=== PATIENT | male | born 1965 | race African-American/Black ===

== ENCOUNTER → 2021-01-27 13:50 | Outpatient (CLI) | payer OTHER, SELFPAY ==
--- NOTE | ~2021-01-27 | CT_ITS ---
EXAMINATION: CT brain wo con DATE: 01/27/2021 14:19 INDICATION: Cerebrovascular accident. Right foot drop. TECHNIQUE: Computed tomography (CT) of the head was performed without intravenous contrast. The mA wa s adjusted according to patient size. Iterative reconstruction technique was employed. The dose-lengt h product was 674.51 mGy-cm. COMPARISON: None FINDINGS: There is no intracranial hemorrhage, acute infarction, or abnormal intracranial mass lesion . There are scattered areas of low attenuation in the cerebral white matter. The ventricles are sultana l in size. The orbits are normal. There is mucosal thickening in the paranasal sinuses. The mastoid a ir cells are normal. IMPRESSION: 1. Moderate nonspecific cerebral white matter disease, which likely represents chronic small vessel i schemic disease. Reviewed, dictated and finalized at location A. ER SEAM OPERATOR IMPRESSION: 1. Moderate nonspecific cerebral white matter disease, which likely represents chronic small vessel ischemic disease.
--- NOTE | ~2021-01-27 | US_ITS ---
EXAMINATION: US carotid duplex BI DATE: 01/27/2021 14:36 INDICATION: Right-sided carotid bruit. TECHNIQUE: Grayscale, color Doppler, and pulsed Doppler images of the cervical carotid arteries were obtained. The degree of vessel stenosis is placed in one of the following categories: normal, <50%, 5 0-69%, >=70% but less than near-occlusion, near-occlusion, or total occlusion. Note that percent sten osis relative to normal distal artery lumen diameter is indirectly measured from velocity measurement s as described by Papa, et al. Radiology 2003; [id number]. COMPARISON: None. FINDINGS: RIGHT: The right common carotid artery (CCA) peak systolic velocity (PSV) is 78 cm/s. The right internal car otid artery (ICA) PSV is 68 cm/s. The right ICA end-diastolic velocity (EDV) is 31 cm/s. The right IC A/CCA PSV ratio is 1.3. Grayscale and color Doppler images yield an estimate of 0% diameter reduction from plaque in the ICA. There is antegrade flow in the right vertebral artery. LEFT: The left CCA PSV is 84 cm/s. The left ICA PSV is 60 cm/s. The left ICA EDV is 25 cm/s. The left ICA/C CA PSV ratio is 1.1. Grayscale and color Doppler images yield an estimate of 0% diameter reduction fr om plaque in the ICA. There is antegrade flow in the left vertebral artery. IMPRESSION: 1. Normal internal carotid arteries. Reviewed, dictated and finalized at location A. BOX TENDER
== END ==
PROVIDERS: Visit Provider Internal Medicine Geriatric Medicine
DX: I65.21 Occlusion and stenosis of right carotid artery (principal); R93.0 Abnormal findings on diagnostic imaging of skull and head, not elsewhere classified
CPT/HCPCS: 70450; 93880

== ENCOUNTER 2024-11-01 12:15 | Emergency (ER) | payer OTHER, SELFPAY ==
--- NOTE | ~2024-11-01 | XR_ITS ---
EXAMINATION: XR hand LT min 3V DATE: 11/01/2024 12:58 INDICATION: Left hand swelling and pain. TECHNIQUE: 4 views of left hand were obtained. COMPARISON: None. FINDINGS: There is dorsal tilt of lunate. No fracture. There is moderate osteoarthritis of radioscaph oid joint and mild osteoarthritis of first carpometacarpal joint and second and fifth distal interpha langeal joints. IMPRESSION: 1. 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 Reviewed, dictated and finalized at location A. ON GRADER IMPRESSION: 1. Dorsal tilt of lunate, consistent with dorsal intercalated segmental instabi lity (DISI). 2. Polyarticular osteoarthritis.
[2024-11-01 12:16] VITALS: BP 160/107; PULSE 62; RESP 16; TEMP 36.4; O2SAT 100
--- NOTE | 2024-11-01 13:02 | ED.UPPEXIN ---
HPI - Extremity Injury (Upper) General Chief Complaint: Extremity Injury, Upper <TANA Lowery Last Filed: 11/01/24 18:04> Stated Complaint: left hand swelling <TANA Lowery Last Filed: 11/01/24 18:04> Time Seen by Provider: 11/01/24 12:28 <TANA Lowery Last Filed: 11/01/24 18:04> Source: patient <TANA Lowery Last Filed: 11/01/24 18:04> Mode of arrival: ambulatory <TANA Lowery Filed: 11/01/24 18:04> Limitations: no limitations <TANA Lowery Filed: 11/01/24 18:04> History of Present Illness HPI narrative: Patient is a 59 y/o male who presents to the ED with c/o L finger pain. Patient reports he sustained a puncture wound to the flexor surface of his L 3rd digit 2 weeks ago from a screw /drill. He was able to reverse the drill to remove the screw. He states since Wednesday, he has had increased swelling, tenderness, inflammation of the finger. States he has decreased range of motion, difficulty holding objects, pain with any range of motion of his finger. Denies fevers. Denies numbness. Denies hx of DM. Tetanus UTD as of 2019. <TANA Lowery Last Filed: 11/01/24 18:04> Related Data Allergies/Adverse Reactions: Allergies Allergy/AdvReac Type Severity Reaction Status Date / Time No Known Allergies Allergy Unknown Verified 05/19/14 22:06 <TANA Lowery Last Filed: 11/01/24 18:04> Review of Systems Review of Systems: All systems reviewed & are unremarkable except as noted in HPI. <TANA Lowery Last Filed: 11/01/24 18:04> All systems reviewed & are unremarkable except as noted in HPI and below <TANA Lowery Last Filed: 11/01/24 18:04> Exam Narrative: GENERAL: Well appearing, obese with BMI of 32.6, non-toxic, in no acute distress. HEAD: Normocephalic, atraumatic. RESPIRATORY: Airway patent, respirations nonlabored. CARDIOVASCULAR: Regular rate and rhythm. Radial pulses are strong and easily palpable. MUSCULOSKELETAL: Moves all extremities. Limited ROM of L 3rd digit d/t pain and swelling. Diffuse swelling throughout L 3rd digit. Puncture wound to proximal phalange region on flexor surface of finger with some scabbing present. No active drainage. Focal TTP throughout proximal portion of finger. Patient holding finger in semi-flexed position, discomfort reported with any passive extension of finger. Unable to flex completely. Sensation intact. Capillary refill intact. SKIN: Warm, dry, normal color. NEURO: A&O X3. Speech clear. PSYCHIATRIC: Appropriate mood and affect. Normal interaction. <Shannon Osorio PA-C - Last Filed: 11/01/24 18:04> Course BUS TRANSPORTATION MANAGER/PA Physician Supervision For this patient encounter, I reviewed the BUS TRANSPORTATION MANAGER or PA documentation, treatment plan, and medical decision making; and I had [id number] time with this patient. <Larry Ruiz MD - Last Filed: 11/01/24 18:53> Vital Signs Vital signs: Vital Signs Temperature 97.6 F 11/01/24 12:16 Pulse Rate 62 11/01/24 12:16 Respiratory Rate 16 11/01/24 12:16 Blood Pressure 160/107 H 11/01/24 12:16 Pulse Oximetry 100 11/01/24 12:16 Oxygen Delivery Room Air 11/01/24 12:16 Temperature 98.3 F 11/01/24 16:26 Pulse Rate 67 11/01/24 16:26 Respiratory Rate 16 11/01/24 16:26 Blood Pressure 153/92 H 11/01/24 16:26 Pulse Oximetry 99 11/01/24 16:26 Oxygen Delivery Room Air 11/01/24 12:16 <Shannon Osorio PA-C - Last Filed: 11/01/24 18:04> Vital Signs Temperature 97.6 F 11/01/24 12:16 Pulse Rate 62 11/01/24 12:16 Respiratory Rate 16 11/01/24 12:16 Blood Pressure 160/107 H 11/01/24 12:16 Pulse Oximetry 100 11/01/24 12:16 Oxygen Delivery Room Air 11/01/24 12:16 Temperature 98.3 F 11/01/24 16:26 Pulse Rate 67 11/01/24 16:26 Respiratory Rate 16 11/01/24 16:26 Blood Pressure 153/92 H 11/01/24 16:26 Pulse Oximetry 99 11/01/24 16:26 Oxygen Delivery Room Air 11/01/24 12:16 <Larry Ruiz MD - Last Filed: 11/01/24 18:53> MDM - Extremity Injury (Upper) MDM Narrative Medical decision making narrative: Patient presented to ED status post puncture wound to left 3rd digit flexor surface 2 weeks ago, now with several days of pain, swelling, limited range of motion. Vital signs are stable. Patient is afebrile. Laboratory studies are reassuring. Normal inflammatory markers. Normal lactic acid. X-ray of hand without evidence of foreign body or fracture. Does show some arthritic changes. Exam is overall concerning for possible flexor tenosynovitis. Feel patient would significantly benefit from IV abx despite reassuring lab work. Vanc and ceftriaxone started in the ED per UpToDate guidelines. Discussed case with hospitalist team here and declined admission due to patient likely needing Hand surgery evaluation. Unfortunately we do not have anyone on-call for Hand surgery over the next few days. Discussed case with Dr. Saez, orthopedic/hand surgery @ [facility], agreed with transfer. Will consult. Recommended ED-ED transfer. Accepted by Dr. Key, EDP @ [facility]. Patient in agreement with plan and need for transfer. <Shannon Osorio PA-C - Last Filed: 11/01/24 18:04> Medical Records Attestation: I reviewed the patient's medical records. <Shannon Osorio PA-C - Last Filed: 11/01/24 18:04> Lab Data Attestation: I reviewed the patient's lab results. <Shannon Osorio PA-C - Last Filed: 11/01/24 18:04> Result diagrams: 11/01/24 13:25 11/01/24 13:25 <Shannon Osorio PA-C - Last Filed: 11/01/24 18:04> Labs: Lab Results 11/01/24 Range/Units 13:25 WBC 5.0 (4.5-10.0) K/mm3 RBC 5.27 (4.6-6.20) M/mm3 Hgb 14.3 (14.0-18.0) g/dL Hct 44.6 (42.0-52.0) % MCV 84.6 (80-100) fl MCH 27.1 (26-34) pg MCHC 32.1 (32-36) g/dl RDW 14.0 (11.5-14.5) % Plt Count 218 (150-375) k/mm3 MPV 10.5 H (7.4-10.4) fl Immature Gran % (Auto) 0.2 (0-0.5) % Neut % (Auto) 56.2 (45.5-73.1) % Lymph % (Auto) 33.9 (18.3-44.2) % [place] % (Auto) 7.3 (2.6-8.5) % Eos % (Auto) 2.2 (0-4.4) % Baso % (Auto) 0.2 (0.2-1.2) % Lymph # (Auto) 1.71 (0.9-3.2) K/mm3 [place] # (Auto) 0.4 (0.1-0.6) K/mm3 Eos # (Auto) 0.1 (0-0.3) K/mm3 Baso # (Auto) 0.0 (0.0-0.1) K/mm3 Abs Immat Gran (auto) 0.01 (0.00-0.031) K/mm3 Absolute Neuts (auto) 2.8 (1.3-6.7) K/mm3 Absolute Nucleated RBC 0.000 (0.0-0.012) K/mm3 Nucleated RBC % 0.0 (0.0-0.2) % ESR 19 (0-20) mm/hr Sodium 137 (137-145) mmol/L Potassium 4.0 (3.4-5.0) mmol/L Chloride 105 (98-107) mmol/L Carbon Dioxide 25 (22-30) mmol/L Anion Gap 7 (4-12) mmol/L BUN 17 (9-20) mg/dL Creatinine 1.30 (0.7-1.3) mg/dL Estim Creat Clear Calc 73 ml/min Estimated GFR > 60 (59 - ) Glucose 93 (65-110) mg/dL Lactic Acid 0.7 (0.7-2.0) mmol/L Calcium 9.4 (8.4-10.2) mg/dL C-Reactive Protein 1.0 (<1.0) mg/dL <Shannon Osorio PA-C - Last Filed: 11/01/24 18:04> Lab Results 11/01/24 Range/Units 13:25 WBC 5.0 (4.5-10.0) K/mm3 RBC 5.27 (4.6-6.20) M/mm3 Hgb 14.3 (14.0-18.0) g/dL Hct 44.6 (42.0-52.0) % MCV 84.6 (80-100) fl MCH 27.1 (26-34) pg MCHC 32.1 (32-36) g/dl RDW 14.0 (11.5-14.5) % Plt Count 218 (150-375) k/mm3 MPV 10.5 H (7.4-10.4) fl Immature Gran % (Auto) 0.2 (0-0.5) % Neut % (Auto) 56.2 (45.5-73.1) % Lymph % (Auto) 33.9 (18.3-44.2) % [place] % (Auto) 7.3 (2.6-8.5) % Eos % (Auto) 2.2 (0-4.4) % Baso % (Auto) 0.2 (0.2-1.2) % Lymph # (Auto) 1.71 (0.9-3.2) K/mm3 [place] # (Auto) 0.4 (0.1-0.6) K/mm3 Eos # (Auto) 0.1 (0-0.3) K/mm3 Baso # (Auto) 0.0 (0.0-0.1) K/mm3 Abs Immat Gran (auto) 0.01 (0.00-0.031) K/mm3 Absolute Neuts (auto) 2.8 (1.3-6.7) K/mm3 Absolute Nucleated RBC 0.000 (0.0-0.012) K/mm3 Nucleated RBC % 0.0 (0.0-0.2) % ESR 19 (0-20) mm/hr Sodium 137 (137-145) mmol/L Potassium 4.0 (3.4-5.0) mmol/L Chloride 105 (98-107) mmol/L Carbon Dioxide 25 (22-30) mmol/L Anion Gap 7 (4-12) mmol/L BUN 17 (9-20) mg/dL Creatinine 1.30 (0.7-1.3) mg/dL Estim Creat Clear Calc 73 ml/min Estimated GFR > 60 (59 - ) Glucose 93 (65-110) mg/dL Lactic Acid 0.7 (0.7-2.0) mmol/L Calcium 9.4 (8.4-10.2) mg/dL C-Reactive Protein 1.0 (<1.0) mg/dL <Larry Riuz MD - Last Filed: 11/01/24 18:53> Imaging Data Attestation: I personally reviewed and interpreted this imaging study as follows: <Shannon Osorio PA-C - Last Filed: 11/01/24 18:04> Radiologist's impression: ITS Impressions Hand X-Ray 11/01/24 12:59 IMPRESSION: 1. 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 <Shannon Osorio PA-C - Last Filed: 11/01/24 18:04> Discharge Plan Discharge Clinical Impression: Cellulitis of finger of left hand Puncture wound of finger of left hand Qualifiers: Encounter type: initial encounter Qualified Code(s): S61.239A - Puncture wound without foreign body of unspecified finger without damage to nail, initial encounter <Shannon Osorio PA-C - Last Filed: 11/01/24 18:04> Patient Disposition: Acute Care Hospital <Shannon Osorio PA-C - Last Filed: 11/01/24 18:04> Condition: Stable <TANA Lowery Last Filed: 11/01/24 18:04> Follow-up/Referrals: UNKNOWN,DOCTOR [Non-Staff] - <Shannon Osorio PA-C - Last Filed: 11/01/24 18:04>
[2024-11-01 13:33] LABS: Basophils Percent Auto 0.2 % (0.2-1.2); Eosinophils Absolute Auto 0.1 K/mm3 (0-0.3); Eosinophils Percent Auto 2.2 % (0-4.4); Hematocrit 44.6 % (42.0-52.0); Hemoglobin 14.3 g/dL (14.0-18.0); Immature Granulocyte Absolute 0.01 K/mm3 (0.00-0.031); Immature Granulocyte Percent A 0.2 % (0-0.5); Lymphocytes Absolute Auto 1.71 K/mm3 (0.9-3.2); Lymphocytes Percent Auto 33.9 % (18.3-44.2); Mean Corpuscular HGB Conc 32.1 g/dl (32-36); Mean Corpuscular Hemoglobin 27.1 pg (26-34); Mean Corpuscular Volume 84.6 fl (80-100); Mean Platelet Volume 10.5 fl (7.4-10.4); Monocytes Absolute Auto 0.4 K/mm3 (0.1-0.6); Monocytes Percent Auto 7.3 % (2.6-8.5); Neutrophils Absolute Auto 2.8 K/mm3 (1.3-6.7); Neutrophils Percent Auto 56.2 % (45.5-73.1); Platelet Count Result 218 k/mm3 (150-375); Red Blood Count 5.27 M/mm3 (4.6-6.20)
[2024-11-01 13:46] LABS: Anion Gap 7 mmol/L (4-12); Blood Urea Nitrogen 17 mg/dL (9-20); Calcium 9.4 mg/dL (8.4-10.2); Carbon Dioxide 25 mmol/L (22-30); Chloride 105 mmol/L (98-107); Estimated CRCL calculation 73 ml/min; Estimated Glomerular Filt Rate > 60; Glucose 93 mg/dL (65-110); Sodium 137 mmol/L (137-145)
[2024-11-01 13:50] LABS: Lactic Acid Reflex 0.7 mmol/L (0.7-2.0)
[2024-11-01 14:02] LABS: Erythrocyte Sedimentation Rate 19 mm/hr (0-20)
--- NOTE | 2024-11-01 14:51 | PC.NURSE ---
per EDP, no blood cultures need to be drawn
[2024-11-01 14:53] VITALS: BP 168/110; PULSE 71; RESP 16; TEMP 36.7; O2SAT 99
[2024-11-01] MEDS: cefTRIAXone 2 GM/NS 100 ML 2 GM/100 ML BAG IVPB (15:01)
[2024-11-01] MEDS: VANCOMYCIN 1,500 MG/NS 500 ML BAG 250 MG IVPB (15:33)
[2024-11-01 16:26] VITALS: BP 153/92; PULSE 67; RESP 16; TEMP 36.8; O2SAT 99
== END 2024-11-01 17:15 | disposition short-term general hospital (02) ==
PROVIDERS: Emergency Provider Physician Assistant
DX: L03.012 Cellulitis of left finger (principal); S61.233A Puncture wound without foreign body of left middle finger without damage to nail, initial encounter; E66.9 Obesity, unspecified; Z68.32 Body mass index [BMI] 32.0-32.9, adult; M19.032 Primary osteoarthritis, left wrist; M18.9 Osteoarthritis of first carpometacarpal joint, unspecified; R93.6 Abnormal findings on diagnostic imaging of limbs; W29.8XXA Contact with other powered hand tools and household machinery, initial encounter
CPT/HCPCS: 36415; 73130; 80048; 83605; 85025; 85652; 86140; 96365; 96366; 96367; 99285; J0696; J3370

== ENCOUNTER 2025-06-03 19:54 | Inpatient (IN) | payer OTHER, SELFPAY ==
[2025-06-03] VITALS (23 sets, daily range): BP systolic 144–187; BP diastolic 83–117; PULSE 60–80; RESP 11–20; TEMP 36.6–36.8; O2SAT 95–100; BMI 32.5
--- NOTE | ~2025-06-03 | MR_ITS ---
MRI of the brain Clinical History: Left-sided weakness Technique: Axial and sagittal T1-weighted images were acquired. These were followed by axial T2-weigh natalie, diffusion weighted, gradient, and FLAIR images. Following intravenous administration of 20 cc Mu ltiHance gadolinium, T1-weighted fat-sat imaging was performed in the axial and coronal planes. Findings: There is patchy restricted diffusion in the posterior right temporal/right parietal lobe, c ompatible with acute infarct. There are additional more focal areas of restricted diffusion in the franco perior subcortical white matter of the right frontal lobe. There is background moderate to severe chr onic microvascular ischemic change in the periventricular white matter bilaterally. No definite acute intracranial hemorrhage. Ventricles and subarachnoid spaces are unremarkable. Orbits are unremarkable. Paranasal sinuses and m astoid air cells are essentially clear. Major intracranial flow voids appear intact. Sagittal midline structures are intact. There is probable minimal postcontrast enhancement along the margin of the area of infarct in the pos terior left temporal lobe. IMPRESSION: Right parietal/posterior right temporal infarct, with additional small focal areas of additional infa rct in the superior right frontal lobe. Background moderate to severe chronic microvascular ischemic change. Reviewed, dictated and finalized at location M. IMPRESSION: Right parietal/posterior right temporal infarct, with additional small focal ar eas of additional infarct in the superior right frontal lobe. Background moderate to severe chronic microvascular ischemic change.
--- NOTE | ~2025-06-03 | CT_ITS ---
EXAMINATION: CTA brain carotid DATE: 06/03/2025 20:12 INDICATION: vomiting and L sided weakness TECHNIQUE: Computed tomographic angiography (CTA) of the head and neck was performed with 100 mL Omni paque-350 intravenous contrast. Automated exposure control and iterative reconstruction technique wer e employed. The dose-length product was 1188.31 mGy-cm. Maximum intensity projection and volume rende red 3D-reconstructions were created by the technologist on a separate workstation. COMPARISON: CT brain, same date FINDINGS: CTA HEAD: No large vessel occlusion, aneurysm, high flow vascular malformation, nidus or extravasation. Symmetr ic parenchymal enhancement. Patent cerebral veins CTA NECK: Aortic arch and proximal great vessels: Bovine arch anatomy. No significant atherosclerotic plaque. Right common carotid, carotid bifurcation, and internal carotid artery: No plaque.There is 0% stenosi s of the proximal right internal carotid artery relative to normal distal artery lumen diameter (NASC ET criteria). Left common carotid, carotid bifurcation, and internal carotid artery: No plaque.There is 0% stenosis of the proximal left internal carotid artery relative to normal distal artery lumen diameter (NASCET criteria). Vertebral arteries: No significant plaque or stenosis. Vertebral arteries co-dominant. Other findings: 2.8 cm right thyroid nodule. Periodontal disease. Right maxillary arch dental implant s. Mild diffuse congenital appearing cervical canal narrowing. IMPRESSION: No large vessel intracranial occlusion, high-grade intracranial stenosis, or aneurysm. No carotid or vertebral artery occlusion, dissection, or significant stenosis. 2.8 cm right thyroid nodule, recommend outpatient thyroid ultrasound for further characterization. Reviewed, dictated and finalized at location K. IMPRESSION: No large vessel intracranial occlusion, high-grade intracranial stenosis, or an eurysm. No carotid or vertebral artery occlusion, dissection, or significant stenosis. 2.8 cm right thyroid nodule, recommend outpatient thyroid ultrasound for furthe r characterization.
--- NOTE | ~2025-06-03 | CT_ITS ---
EXAMINATION: CT brain wo con DATE: 06/03/2025 20:07 INDICATION: L sided weakness and vomiting . TECHNIQUE: Computed tomography (CT) of the head was performed without intravenous contrast. The mA wa s adjusted according to patient size. Iterative reconstruction technique was employed. The dose-lengt h product was 681.00 mGy-cm. COMPARISON: 01/27/2021. FINDINGS: No acute intracranial hemorrhage or extra-axial fluid collection. No hydrocephalus, mass, or herniation. No acute ischemic infarct. Unremarkable dural venous sinus attenuation. No acute osseous abnormality. Poorly pneumatized frontal sinuses and bilateral mastoid air cells, mild bilateral maxillary and ethm oid mucosal thickening, the remaining aerated spaces are clear. Mild atrophy and moderate chronic white matter change. Atherosclerotic intracranial calcification. IMPRESSION: No acute intracranial process. Reviewed, dictated and finalized at location K.
--- NOTE | ~2025-06-03 | XR_ITS ---
EXAMINATION: XR chest 1V portable Exam Date/Time: 06/03/2025 20:29 CDT HISTORY: L sided weakness Comparison: 01/10/2019. RESULT: Lines, tubes, and devices: None. Lungs and pleura: Lordotic positioning with low volumes and bronchovascular crowding patchy segmenta l left lower lung opacities. Cardiomediastinal silhouette: Stable. Other: No acute osseous or upper abdominal finding. IMPRESSION: Segmental left lower lung atelectasis/consolidation. Reviewed, dictated and finalized at location K.
--- OUTSIDE RECORDS SUMMARY | 2025-06-03 19:56 | XMS_ITS | Clinical Summary ---
Author Organization [facility] Address [address] [place] [address] Care Team Providers Care Telecommunications Consultant Name Role Phone Harish Teran MD Primary Care Provider [phone] Source Comments [facility],non-owned Affiliates and Associated Physician Practices is amultiple site organization consisting of ambulatory clinics and hospital sitesin [place], [place], [place] and [place]. This disclosure is being madepursuant to the Care Everywhere program and may not contain all information available regarding this patient. Last updated 18.[facility] Allergies No known active allergies Medications * Be aware that medications may not be up to date on this document. Alwaysverify current medications with the patient. amLODIPine (Norvasc) 10 MG tablet Take 1 (one) tablet by mouth once daily Active hydroCHLOROthiaz eli (HYDRODIURIL) 12.5 MG Take 1 (one) tablet by mouth once daily 12/13/19 20 Active carvedilol (COREG) 25 MG tablet Take 1 (one) tablet by mouth 2 times daily with morning and evening meal 12/13/19 20 Active meloxicam (MOBIC) 15 MG tabletIndication s:Arthritis of left wrist Take 1 tablet by mouth once daily 30 tablet 1 02/06/20 20 Active rivaroxaban (Xarelto) 20 MG tablet Take 1 (one) tablet by mouth once daily 05/15/20 24 Active acetaminophen (Tylenol) 325 MG tablet Take 2 (two) tablets by mouth every 6 hours as needed Maximum allowable Acetaminophen amount = 4 Grams (4000 mg) / 24 hours. 11/05/20 24 Active active leptospermum honey (Medihoney) GEL gel Apply to affected area once daily 15 mL 1 11/17/20 24 Active Active Problems Problem Noted Date Diagnosed Date Left hand pain 11/02/2024 Flexor tenosynovitis of finger 11/02/2024 Finger injury, left, initial encounter Stage 3 chronic kidney disease 11/02/2024 History of DVT (deep vein thrombosis) 11/02/2024 Benign essential HTN 11/02/2024 Arthritis of left wrist 09/26/2019 Acute appendicitis 08/17/2016 Foreign body in cornea 11/21/2009 Encounters Date Type Department Care Team Description 05/31/2025 8:30 AM CDT - 05/31/2025 11:59 PM CDT Hospital [place] [facility] [place] [address] [place] [phone] Perfecto Thompson MD Orthopedics Discharge Disposition: Home or Self Care 05/24/2025 8:30 AM CDT - 05/24/2025 11:59 PM CDT Hospital Encounter [facility] [address] [place] [phone] Perfecto Thompson MD Muldoon, Grace, OT Discharge Disposition: Home or Self Care 05/17/2025 8:27 AM CDT - 05/17/2025 11:59 PM CDT Hospital Encounter [facility] [address] [place] [phone] Perfecto Thompson MD Reale, Jennifer, OTR/L Discharge Disposition: Home or Self Care 05/09/2025 8:30 AM CDT - 05/09/2025 11:59 PM CDT Hospital Encounter [facility] [address] [place] [address] Perfecto Thompson MD Rudd, Jason, OT Orthopedics Discharge Disposition: Home or Self Care 05/03/2025 1:00 PM CDT - 05/03/2025 11:59 PM CDT Hospital Encounter [facility] [address] [place] [phone] Perfecto Thompson MD Pisciotto, Erica D, OT Discharge Disposition: Home or Self Care 04/26/2025 8:28 AM CDT - 04/26/2025 11:59 PM CDT Hospital Encounter [facility] [address] [place] [address] Perfecto Thompson MD Franks, Samantha, OT Discharge Disposition: Home or Self Care 04/19/2025 8:30 AM CDT - 04/19/2025 11:59 PM CDT Hospital Encounter [facility] [place] [address] [place] [phone] Perfecto Thompson MD Franks, Samantha, OT Discharge Disposition: Home or Self Care 04/12/2025 8:45 AM CDT - 04/12/2025 11:59 PM CDT Hospital Encounter [facility] [place] [address] [place] [phone] Perfecto Thompson MD Franks, Samantha, OT Discharge Disposition: Home or Self Care 04/05/2025 8:30 AM CDT - 04/05/2025 11:59 PM CDT Hospital Encounter [facility] [place] [address] [place] [phone] Perfecto Thompson MD Franks, Samantha, OT Discharge Disposition: Home or Self Care 03/29/2025 8:30 AM CDT - 03/29/2025 11:59 PM CDT Hospital Encounter [facility] [place] [address] [place] [phone] Perfecto Thompson MD Franks, Samantha, OT Discharge Disposition: Home or Self Care 03/22/2025 8:30 AM CDT - 03/22/2025 11:59 PM CDT Hospital Encounter [facility] [place] [address] [place] [phone] Perfecto Thompson MD Franks, Samantha, OT Discharge Disposition: Home or Self Care 03/08/2025 8:30 AM CDT - 03/08/2025 11:59 PM CDT Hospital Encounter [facility] [place] [address] [place] [phone] Perfecto Thompson MD Pisciotto, Erica D, OT Discharge Disposition: Home or Self Care from Last 3 Months Immunizations Immunization Administration Dates Next Due INFLUENZA VACCINE, QUADR. (F LUZONE; FLULAVAL; FLUARIX; AFLURIA QUADRIVALENT; 6MO+), 0.5 ML (IIV4) 08/18/2016 Family History Medical History Relation Name Comments Hypertension Father Hypertension Mother Relation Name Status Comments Father Mother Alive Social History Tobacco Use Types Packs/Day Years Used Date Smoking Tobacco: Never Tobacco Cessation:Counseling Given: Not Answered Alcohol Use Standard Drinks/Week Comments No 0 (1 standard drink = 0.6 oz pur e alcohol) AUDIT-C Answer Date Recorded Q1: How often do you have a drink containing alcohol? Never 11/03/2024 Q2: How many drinks containi ng alcohol do you have on a typical day when you are drinking? Patient does not drink Q3: How often do you have si x or more drinks on one occasion? Never 11/03/2024 Overall Financial Resource Strain (CARDIA) Answe r Date Recorded How hard is it for you to pa y for the very basics like food, housing, medical care, and heating? Not hard at all 11/03/2024 [facility] - Occupational Stress Questionnaire Answer Date Recorded Do you feel stress - tense, restless, nervous, or anxious, or unable to sleep at night because your mind is troubled all the time - these days? Not at all 11/03/2024 Hunger Vital Sign Answer Date Recorded Within the past 12 months, y ou worried that your food would run out before you got the money to buy more. Never true 11/03/20 24 Within the past 12 months, t he food you bought just didn't last and you didn't have money to get more. Never true 11/03/2024 PRAPARE - Transportation Answer Date Re corded In the past 12 months, has l ack of transportation kept you from medical appointments or from getting medications? No 04/2024 In the past 12 months, has l ack of transportation kept you from meetings, work, or from getting things needed for daily living? No 11/03/2024 Housing Stability Vital Sign Answer Oscar e Recorded In the last 12 months, was t here a time when you were not able to pay the mortgage or rent on time? No 11/03/2024 In the past 12 months, how m any times have you moved where you were living? 1 11/03/2024 At any time in the past 12 m [facility], were you homeless or living in a assisted (including now)? No 11/03/2024 Sex and Gender Information Value Date Recorded Sex Assigned at Not on file Legal Sex Male 8:20 AM [employer] Gender Identity Not on file Sexual Orientation Not on file Last Filed Vital Signs Vital Sign Reading Time Taken Comments Blood Pressure 140/108 11/05/2024 9:24 AM [employer] Pulse 74 11/05/2024 9:24 AM [employer] Temperature 36.6 C (97.9 F) 11/05/2024 9:24 AM [employer] Respiratory Rate 20 11/05/2024 9:24 AM [employer] Oxygen Saturation 97% 11/04/2024 8:13 PM [employer] Inhaled Oxygen Concentration 40% 11/02/2024 5 :25 PM [employer] Weight 114.3 kg (252 lb) 11/02/2024 9:06 PM [employer] Height 188 cm (6' 2.02) 11/02/2024 9:06 PM [employer] Body Mass Index 32.34 11/02/2024 9:06 PM [employer] Plan of Treatment Upcoming Encounters Date Type Department Care Team (Late st Contact Info) Description 06/07/2025 8:30 AM CDT Appointment [facility] [address] [place] [phone] 06/14/2025 8:30 AM CDT Appointment [facility] [address] [place] [address] 06/21/2025 8:30 AM CDT Appointment [facility] [address] [place] [address] Naa Turcios, OTR/L Health Maintenance Due Date Last Done Comments COLOGUARD (AGES 45-75) - COLON CA SCREENING 1964 CT COLONOGRAPHY - COLON CA SCREENING 1964 FIT - COLON CA SCREENING 1964 FLEX SIG - COLON CA SCREENING 1964 HIV SCREENING 1979 HEPATITIS C SCREENING 05/31/1982 DTAP/TDAP/TD VACCINES (1 - Tdap) 1983 PNEUMOCOCCAL VACCINE 50+ (1 of 1 - PCV) 2014 ZOSTER VACCINE (1 of 2) 2014 LIPID TESTING 03/06/2020 03/06/2015 COVID-19 VACCINE ( season) 2024 11/11/2022, 04/09/2021, 03/07/2021, Additional history exists DEPRESSION SCREENING 11/29/2024 INFLUENZA VACCINE (#1) 2025 09/11/2024, 2015 SCREENING FOR DIABETES 11/01/2027 , 08/18/2016, 08/17/2016, Additional history exists COLON MONITORING 08/06/2032 08/06/2022 COLONOSCOPY - COLON CA SCREENING 08/06/2032 08/06/2022 Colorectal Cancer Screening 08/06/2032 Respiratory Syncytial Virus (RSV) Vaccine Pt: or over 60 yrs (1 - 1-dose 75+ series) 2039 HEPATITIS B VACCINE Aged Out No longe r eligible based on patient's age to complete this topic HIB VACCINE Aged Out No longer eligi ble based on patient's age to complete this topic HPV VACCINE Aged Out No longer eligi ble based on patient's age to complete this topic MENINGOCOCCAL (Group B) VACCINE SHARED DECISION-MAKING Aged Out No longer eligible based on patient's age to complete this topic MENINGOCOCCAL GROUPS A/C/Y/W VACCINE Aged Out No longer eligible based on patient's age to complete this topic Procedures Procedure Name Priority Date/Time Associated Diagnosis Comments COMPREHENSIVE METABOLIC PANEL STAT 11/01/2024 6:27 PM [employer] from Last 3 Months or Most Recently Relevant to Health Maintenance Results * (ABNORMAL) COMPREHENSIVE METABOLIC PANEL (11/01/2024 6:27 PM [employer]) BUN 18 7 - 26 mg/dL 11/01/2024 7:02 PM [employer] [facility] Creatinine 1.42(H) 0.71 - 1.16 mg/dL 11/01/2024 7:02 PM [employer] [facility] Sodium 139 136 - 145 mmol/L 11/01/2024 7:02 PM [facility] Potassium 3.5 3.5 - 4.5 mmol/L 11/01/2024 7:02 PM [facility] Chloride 107 98 - 107 mmol/L 11/01/2024 7:02 PM [facility] CO2 24 22 - 29 mmol/L 11/01/2024 7:02 PM [facility] Glucose 106(H) 70 - 99 mg/dL 11/01/2024 7:02 PM [facility] Calcium 9.4 8.4 - 10.2 mg/dL 11/01/2024 7:02 PM [facility] Protein Total 7.7 6.0 - 8.3 g/dL 11/01/2024 7:02 PM [facility] Albumin 3.8 3.4 - 5.0 g/dL 11/01/2024 7:02 PM [facility] Bilirubin Total 0.6 0.2 - 1.2 mg/dL 11/01/2024 7:02 PM [facility] Alkaline Phosphatase 62 40 - 150 U/L 11/01/2024 7:02 PM [facility] ALT 34 5 - 55 U/L 11/01/2024 7:02 PM [facility] AST 26 5 - 34 U/L 11/01/2024 7:02 PM [facility] Anion Gap 8 6 - 16 11/01/2024 7:02 PM [facility] BUN/Creatinine Ratio 13 7 - 23 11/01/2024 7:02 PM [facility] Osmolality Calculated 290 275 - 295 mOsm/kg 11/01/2024 7:02 PM [facility] Albumin/Globulin Ratio 1.0(L) 1.1 - 2.3 11/01/2024 7:02 PM [facility] eGFR by CKD-EPI 57(L) >=90 mL/min/1.7 3 m2 11/01/2024 7:02 PM [facility] Blood BLOOD SPECIMEN / Unknown Venipuncture / Unknown 11/01/2024 6:27 PM [employer] 11/01/2024 6:35 PM [facility] Marga G Paiz [employer] [facility] - CHEMISTRY ORDER AVA Final Result [facility] [address] [place] [address], [place] [phone] from Last 3 Months or Most Recently Relevant to Health Maintenance Insurance [employer] Advance Directives * Full Code (Latest Code Status on File) Date Activated Date Inactivated Comments 11/02/2024 3:53 AM 11/05/2024 4:43 PM * Full Code Date Activated Date Inactivated Comments 08/17/2016 7:44 PM 08/19/2016 4:44 PM * Full Code Date Activated Date Inactivated Comments 03/15/2015 12:45 PM 03/15/2015 7:09 PM Care Teams Telecommunications Consultant Relationship Specialty Start Date End Date Harish Teran MD [address] [place] [address] [address] [place] [phone] PCP - General Internal Medicine 03/15/15
--- OUTSIDE RECORDS SUMMARY | 2025-06-03 19:56 | XMS_ITS | Clinical Summary ---
Author Organization [facility] Address [address] [place] [address] Care Team Providers Care Application Support Developer Name Role Phone Claudia Rojas NP Primary Care Provider [phone] Allergies No known active allergies Medications multivitamin-min -iron-FA-vit K 45 mg iron- 800 mcg-120 mcg capsule Take 1 capsule by mouth daily 0 Active diclofenac sodium (VOLTAREN) 1 % gelIndications:A rthralgia of right wrist Apply 4 g topically 4 (four) times a day as needed (along wrist for pain) 100 g 2 Active rosuvastatin (CRESTOR) 10 mg tabletIndication s:Dyslipidemia Take 1 tablet (10 mg total) by mouth daily 90 tablet 2 3 Active rivaroxaban (XARELTO) 20 mg tabletIndication s:Chronic deep vein thrombosis (DVT) of femoral vein of left lower extremity (HCC) Take 1 tablet (20 mg total) by mouth daily 90 tablet 3 4 Active sildenafiL (VIAGRA) 100 mg tabletIndication s:Erectile dysfunction, unspecified erectile dysfunction type Take 1 tablet (100 mg total) by mouth as needed for erectile dysfunction 10 tablet 2 4 Active amLODIPine (NORVASC) 10 mg tabletIndication s:Essential hypertension Take 1 tablet (10 mg total) by mouth daily 90 tablet 5 Active carvediloL (COREG) 25 mg tabletIndication s:Essential hypertension Take 1 tablet (25 mg total) by mouth 2 (two) times a day 180 tablet 5 Active losartan-hydroCH LOROthiazide (HYZAAR) 50-12.5 mg per tabletIndication s:Essential hypertension Take 1 tablet by mouth daily 90 tablet 5 12/25/19 26 Active Active Problems Problem Noted Date Diagnosed Date Primary osteoarthritis of right knee 05/15/2024 Assessment & Plan (09/11/2024 3:40 PM CDT): Reportedly more manageable Cnt supportives, inverse table use, bracing prn simran w/ laborious work Will update interim next 4 months OV w/ concerns Assessment & Plan (05/15/2024 12:11 PM CDT): Reportedly more manageable Cnt supportives, inverse table use, bracing prn simran w/ laborious work Will update interim next 4 months OV w/ concerns Normocytic anemia 05/15/2024 Assessment & Plan (09/11/2024 3:29 PM CDT): Remains stable Asymptomatic w/ benign exam Comfortable repeating surveillance labs w/ fe, iron battery in 4-6 months Encounter for screening for malignant neoplasm o f prostate 07/07/2023 Family history of prostate cancer 07/07/2023 Asymptomatic microscopic hematuria 11/17/2022 Overview (11/17/2022): Incidentally noted on UA w/ reflex 11/16/22: Component Ref Range & Units 1 d ago Color, ur Yellow Straw Clarity, ur Clear Clear Specific gravity, ur 1.003 - 1.030 1.024 pH, urine 6.0 Protein, ur ql Negative 1+ Abnormal Glucose, ur ql Negative Negative Ketones, ur Negative Negative Bilirubin, ur Negative Negative Blood, ur Negative 1+ Abnormal Urobilinogen, ur <2.0 mg/dL 2.0 Abnormal Nitrite, ur Negative Negative Leukocyte esterase, ur Negative Negative UA reflex comment Reflex to microscopic UA will be performed. Assessment & Plan (09/11/2024 3:24 PM CDT): Mild, stable per recent UA Remains asymptomatic Cnt lab surveillance Assessment & Plan (05/15/2024 12:13 PM CDT): Mild, asymp & benign historically at +1 hematuria historically 07/31/23 urine cytology: Negative for high-grade urothelial carcinoma Clinically asym. Will cont annual lab & urine surveillance Assessment & Plan (11/02/2023 3:50 PM CHANDELIER MAKER): Mild, asymp & benign historically at +1 hematuria historically 07/31/23 urine cytology: Negative for high-grade urothelial carcinoma Clinically asym. Will cont annual lab & urine surveillance Assessment & Plan (07/07/2023 7:12 PM CDT): Incidentally noted UA reflex 11/19 No prior tobacco use, poss industrial exposure Clinically aysmp Update UA today pending further direction Father passed of bladder cancer- UA cytology Low threshold consider renal US Update in the week Isolated proteinuria without specific morphologi c lesion 11/17/2022 Overview (11/17/2022): Incidentally noted on UA w/ reflex 11/16/22: Component Ref Range & Units 1 d ago Color, ur Yellow Straw Clarity, ur Clear Clear Specific gravity, ur 1.003 - 1.030 1.024 pH, urine 6.0 Protein, ur ql Negative 1+ Abnormal Glucose, ur ql Negative Negative Ketones, ur Negative Negative Bilirubin, ur Negative Negative Blood, ur Negative 1+ Abnormal Urobilinogen, ur <2.0 mg/dL 2.0 Abnormal Nitrite, ur Negative Negative Leukocyte esterase, ur Negative Negative UA reflex comment Reflex to microscopic UA will be performed. Poss associated HTN related CKD w/o presence of DMII Planning to closely monitor w/ UA reflex 4 months poss further MM wrkup w/ SPEP,UPEP, renal ultrasound Assessment & Plan (05/15/2024 12:10 PM CDT): Remains mild interim incidentally noting per UA in 11/19 Clinically aysmp Father passed of bladder cancer- UA cytology Low threshold consider renal US, SPEP & UPEP for MM eval given poss industrial exposures, FHx, HTN, etc Update UA reflux 4 months prior OV Assessment & Plan (07/07/2023 4:18 PM CDT): Incidentally noted UA reflex 11/19 Clinically aysmp Update UA today pending further direction Father passed of bladder cancer- UA cytology Low threshold consider renal US, SPEP & UPEP for MM eval given poss industrial exposures, FHx, HTN, etc Update in the week Erectile dysfunction 06/08/2022 Assessment & Plan (09/11/2024 3:40 PM CDT): Refractory, intermittent ED w/ optimized sildenafil (optimized dosage) uncertain etiology No CAD, inorganic or psychogenic etiology Low yield of alt PDE5 inhibitors to yield better outcome; possibly hypogonadism to consider Agreeable to urologic consult for evaluation of both closer PSA monitoring, evaluate impotence concerns Cautioned of supportive measures to assist w/ impotence, fine cont viagra prn interim Assessment & Plan (07/07/2023 4:06 PM CDT): Intermittent ED sx w/o psychogenic etiology Improve w/ sildenafil- refilled for prn use as prior;SER Cnt routine lab monitoring Assessment & Plan (11/16/2022 2:39 PM CHANDELIER MAKER): Intermittent ED sx w/o psychogenic etiology Improve w/ sildenafil- refilled for prn use as prior;SER Cnt routine lab monitoring Assessment & Plan (06/08/2022 4:06 PM CDT): Progressive w/o psychogenic etiology Prior PSA levels NL, stable Discussed testosterone relaplcement S/Es Agreeable to trial sidenafil for prn use (0.5 tab 1 hr prior); SER Update in 3-4 months to re-eval and discuss checking t-levels Dyslipidemia 05/12/2022 Assessment & Plan (09/11/2024 3:25 PM CDT): Hyperlipidemia well controlled on atorvastatin Adherent to rosuvastatin w/o S/Es If applicable, ASCVD risk score considered, reviewed Recommended Nutritional counseling was provided., Pharmacotherapy as ordered., Daily aerobic exercise/activity as tolerated and wt loss Lipids will be reassessed 4 months for OV & CMP, FLP . Assessment & Plan (05/15/2024 12:03 PM CDT): Hyperlipidemia well controlled on atorvastatin Adherent to rosuvastatin w/o S/Es If applicable, ASCVD risk score considered, reviewed Recommended Nutritional counseling was provided., Pharmacotherapy as ordered., Daily aerobic exercise/activity as tolerated and wt loss Lipids will be reassessed 4 months for OV & CMP, FLP . Update lipid, comp today Assessment & Plan (11/02/2023 4:00 PM CHANDELIER MAKER): Hyperlipidemia well controlled on atorvastatin Adherent to rosuvastatin w/o S/Es If applicable, ASCVD risk score considered, reviewed Recommended Nutritional counseling was provided., Pharmacotherapy as ordered., Daily aerobic exercise/activity as tolerated and wt loss Lipids will be reassessed 4 months for OV & CMP, FLP . Update lipid, comp today Assessment & Plan (07/07/2023 4:06 PM CDT): Hyperlipidemia improved Adherent to rosuvastatin w/o S/Es If applicable, ASCVD risk score considered, reviewed Recommended Nutritional counseling was provided., Pharmacotherapy as ordered., Daily aerobic exercise/activity as tolerated and wt loss Lipids will be reassessed 4 months for OV & CMP, FLP . Update lipid, comp today Assessment & Plan (11/16/2022 2:27 PM CHANDELIER MAKER): Hyperlipidemia are unchanged, newly increased as of 05/09 Adherent to rosuvastatin w/o S/Es If applicable, ASCVD risk score considered, reviewed Recommended Nutritional counseling was provided., Pharmacotherapy as ordered., Daily aerobic exercise/activity as tolerated and wt loss Lipids will be reassessed 4 months for OV & CMP, FLP. Update lipid, comp today Assessment & Plan (06/08/2022 4:07 PM CDT): Hyperlipidemia are worsening Adherent to rosuvastatin w/o S/Es If applicable, ASCVD risk score considered, reviewed Recommended Nutritional counseling was provided., Pharmacotherapy as ordered., Daily aerobic exercise/activity as tolerated and wt loss Lipids will be reassessed 4 months for OV & CMP, FLP. Family history of ischemic h eart disease and other diseases of the circulatory system 05/08/2022 Assessment & Plan (05/08/2022 4:22 PM CDT): + paternal FHx Primary risk reduction discussed focusing on HTN, HLD control FLP today pending ASCVD score for further direction Hearing loss due to cerumen impaction, bilateral 05/08/2022 Assessment & Plan (05/08/2022 4:21 PM CDT): Successful cerumen removal completed office today Counseled of OTC methods to assist with cerumen removal including avoiding Q- tips. RTC with any ongoing sx, need for irrigation CKD (chronic kidney disease) stage 3, GFR 30-59 ml/min 05/08/2022 Assessment & Plan (09/11/2024 3:25 PM CDT): Remains stable/ near baseline (1.2-1.4) Update routine cmp Cnt avoid nephrotoxins, HTN mgmt, hydration RTC 6 months Assessment & Plan (05/15/2024 12:03 PM CDT): Remains stable/ near baseline (1.2-1.4) Update routine cmp Cnt avoid nephrotoxins, HTN mgmt, hydration RTC 6 months Assessment & Plan (11/02/2023 3:56 PM CHANDELIER MAKER): Remains stable/ near baseline (1.2-1.4) Update routine cmp Cnt avoid nephrotoxins, HTN mgmt, hydration RTC 6 months Assessment & Plan (07/07/2023 3:58 PM CDT): CKD is near baseline- update today Labs/Diagnostics:CMP and Urinalysis Recommendations Medication changes as ordered and Labs and/or diagnostics as ordered Counseled of control of chronic conditions, Dietary modifications, ensuring adequate hydration, avoidance and/or close monitoring with use of OTC nephrotoxins including NSAIDs, PPIs RTC 4-6 months pending labs Assessment & Plan (11/16/2022 2:26 PM CHANDELIER MAKER): CKD is near baseline- update today Labs/Diagnostics:CMP and Urinalysis Recommendations Medication changes as ordered and Labs and/or diagnostics as ordered Counseled of control of chronic conditions, Dietary modifications, ensuring adequate hydration, avoidance and/or close monitoring with use of OTC nephrotoxins including NSAIDs, PPIs Update in the week with labs, UA & need for renal US Plan for re-eval in 4 months Assessment & Plan (06/08/2022 3:55 PM CDT): CKD is stable Labs/Diagnostics:CMP and Urinalysis Recommendations Medication changes as ordered and Labs and/or diagnostics as ordered Counseled of control of chronic conditions, Dietary modifications, ensuring adequate hydration, avoidance and/or close monitoring with use of OTC nephrotoxins including NSAIDs, PPIs Follow up 3 months Hopeful for improvement since HTN more controlled- BMP today recheck renal Fx, K+ Assessment & Plan (05/08/2022 4:19 PM CDT): CKD is stable Labs/Diagnostics:CMP and Urinalysis Recommendations Medication changes as ordered and Labs and/or diagnostics as ordered Counseled of control of chronic conditions, Dietary modifications, ensuring adequate hydration, avoidance and/or close monitoring with use of OTC nephrotoxins including NSAIDs, PPIs Follow up 3 months Uncontrolled HTN likely cause-focus on HTN control, hydration Chronic deep vein thrombosis (DVT) of femoral vein of left lower extremity 09/24/2021 Assessment & Plan (09/11/2024 3:25 PM CDT): Stable on Xarelto. Hematology eval yrs ago recommended long-term anticoagulation. Cont daily NOAC towards prevention as prior Assessment & Plan (05/15/2024 12:03 PM CDT): Stable on Xarelto. Evaluated by hematology who agreed with long-term anticoagulation. Cont with once daily you for maintenance anticoagulation. Assessment & Plan (11/02/2023 3:55 PM CHANDELIER MAKER): Stable on Xarelto. Evaluated by hematology who agreed with long-term anticoagulation. Cont with once daily you for maintenance anticoagulation. Assessment & Plan (07/07/2023 3:58 PM CDT): Stable on Xarelto. Evaluated by hematology who agreed with long-term anticoagulation. Cont with once daily you for maintenance anticoagulation. Assessment & Plan (11/16/2022 2:28 PM CHANDELIER MAKER): Stable on Xarelto. Evaluated by hematology who agreed with long-term anticoagulation. Cont with once daily you for maintenance anticoagulation. Assessment & Plan (05/08/2022 3:57 PM CDT): Stable on Xarelto. Evaluated by hematology who agreed with long-term anticoagulation. Cont with once daily you for maintenance anticoagulation. Assessment & Plan (09/24/2021 10:50 AM CDT): Stable on Xarelto. Evaluated by hematology who agreed with long-term anticoagulation. Cont with once daily you for maintenance anticoagulation. Elevated PSA 03/28/2021 Overview (11/02/2023): Images from the original note were not included. Assessment & Plan (09/11/2024 3:27 PM CDT): Stable, mild elevations around 2.4- 2.67 since oct(prior 2.3 in 2019) FHx of stem processing machine operator Asymp Agreeable to urologic consult for evaluation of both closer PSA monitoring, evaluate impotence concerns Interim psa surveillance until w/ specialist Assessment & Plan (05/15/2024 12:04 PM CDT): Modestly stable 11/20 2.67 from 2.17 in jun(prior 2.3 in 2019) FHx of stem processing machine operator Asymp Prior discussed urologist eval- preferring lab surveillance Comfortable with this as well if levels remain <3 & asymptomatic Cnt lab surveillance Q4-6 months -update today Assessment & Plan (11/02/2023 3:59 PM CHANDELIER MAKER): Remains stable in jun 2.17 from prior 2.3 in 2019 FHx of stem processing machine operator Asymp Prior discussed urologist eval- preferring lab surveillance Comfortable with this as well if levels remain <3 & asymptomatic Cnt lab surveillance Q4-6 months -update today Assessment & Plan (07/07/2023 4:03 PM CDT): Overdue for update PSA surveillance- Brother's recent dx w/ stem processing machine operator; otherwise no known FHx stem processing machine operator Clinically asymptomatic Update PSA today pending further direction Assessment & Plan (05/08/2022 3:57 PM CDT): Stable Asymptomatic No FHx of PA CA Repeat in the week pending further direction Assessment & Plan (09/24/2021 10:56 AM CDT): Noted in February 2021 w/ annual labs No prior labs for comparison Asymptomatic w/o FHx Repeat PSA today to ensure levels stable w/o trend Annual physical exam 03/24/2021 Assessment & Plan (09/11/2024 3:23 PM CDT): Annual physical exam with wellness labs ordered today in clinic. Discussed recommended vaccinations per current guidelines- contraindications, concerns regarding vaccinations reviewed and/or updated in EMR to revisit status next CPE if overdue. Further follow-up pending results of labs. RTC in 1 year for next annual exam or in the interim prn. Shingrix RX sent to pharmacy to update CV19 booster encouraged update as well Assessment & Plan (07/07/2023 4:00 PM CDT): Annual physical exam with wellness labs ordered today in clinic. Discussed recommended vaccinations per current guidelines- contraindications, concerns regarding vaccinations reviewed and/or updated in EMR to revisit status next CPE if overdue. Further follow-up pending results of labs. RTC in 1 year for next annual exam or in the interim prn. Assessment & Plan (05/08/2022 4:18 PM CDT): Annual physical exam with wellness labs ordered today in clinic. UTD on all vaccinations aside per guidelines. CV19 vax- 2/3- agreeable to obtain booster in the month Further follow-up pending results of labs. RTC in 1 year for next annual exam or in the interim prn. Assessment & Plan (03/24/2021 9:21 AM CDT): Annual physical exam with wellness labs ordered today in clinic. UTD on all vaccinations aside per guidelines. Further follow-up pending results of labs. RTC in 1 year for next annual exam or in the interim prn. Lumbar radiculopathy, right 03/24/2021 Assessment & Plan (05/08/2022 3:56 PM CDT): Chronic DJD Stable w/ maintained therapies, inversion RTC prn Assessment & Plan (03/24/2021 9:30 AM CDT): Recent lumbar MRI reviewed noting severe DDDx, foraminal stenosis. Discussed options and recommendations. Will consider steroid injections and follow-up with NS to schedule follow-up to discuss Obesity 08/21/2019 Assessment & Plan (11/02/2023 4:06 PM CHANDELIER MAKER): Steady & marginal wt gain over last few yrs Suggestively metabolic related Discussed limited ability guarantee wt loss yield less RX Not ideal candidate for formal wt loss therapies D/T THN, HLD Discussed GLP or other covered alternatives, poss uro or endo referral discuss androgen replacement - deferred today Will cont optimizing exercise routine support metabolic needs for wt loss, healthier diet habits & revisit nxt OV or sooner if any RX therapy desired Assessment & Plan (07/07/2023 7:18 PM CDT): Marginal increase wt last year Discussed incorporating alt aerobic exercise/activity for metabolic improvement Revisit next OV Assessment & Plan (11/16/2022 2:35 PM CHANDELIER MAKER): Improving Cnt with lifestyle modifications working toward weight loss as prior Complimented success thus far Will cont to monitor, support Assessment & Plan (06/08/2022 4:03 PM CDT): Obesity is unchanged. Discussed the patient's BMI. The BMI is above average; no BMI management plan is appropriate. General weight loss/lifestyle modification strategies discussed (elicit support from others; identify saboteurs; non-food rewards, etc). Counseled on dietary options including mediterranean diet and intermittent fasting Informal exercise measures discussed, e.g. taking stairs instead of elevator. Assessment & Plan (05/08/2022 4:21 PM CDT): Obesity is unchanged. Discussed the patient's BMI. The BMI is above average; no BMI management plan is appropriate. General weight loss/lifestyle modification strategies discussed (elicit support from others; identify saboteurs; non-food rewards, etc). Counseled on dietary options including mediterranean diet and intermittent fasting Informal exercise measures discussed, e.g. taking stairs instead of elevator. Essential hypertension 05/13/2015 Assessment & Plan (09/11/2024 3:27 PM CDT): Hypertension is stable Continue current treatment regimen. Dietary sodium restriction. Weight loss. Regular aerobic exercise. Ambulatory blood pressure monitoring. [facility] today RTC 6 months Assessment & Plan (05/15/2024 12:02 PM CDT): Hypertension is stable Continue current treatment regimen. Dietary sodium restriction. Weight loss. Regular aerobic exercise. Ambulatory blood pressure monitoring. [facility] today RTC 6 months Assessment & Plan (11/02/2023 4:05 PM CHANDELIER MAKER): Hypertension is stable Continue current treatment regimen. Dietary sodium restriction. Weight loss. Regular aerobic exercise. Ambulatory blood pressure monitoring. [facility] today RTC 4-6 months Assessment & Plan (07/07/2023 4:00 PM CDT): Hypertension is stable Continue current treatment regimen. Dietary sodium restriction. Weight loss. Regular aerobic exercise. Ambulatory blood pressure monitoring. [facility] today RTC 4-6 months Assessment & Plan (11/16/2022 2:27 PM CHANDELIER MAKER): Hypertension is improving with treatment Continue current treatment regimen. Dietary sodium restriction. Weight loss. Regular aerobic exercise. Ambulatory blood pressure monitoring. Blood pressure will be reassessed at the next regular appointment. Update renal function today since med adjustment Assessment & Plan (06/08/2022 4:03 PM CDT): Hypertension is improving with treatment Continue current treatment regimen. Dietary sodium restriction. Weight loss. Regular aerobic exercise. Ambulatory blood pressure monitoring. Blood pressure will be reassessed 4 months. Separate BP medication from AM & PM [facility] today Assessment & Plan (05/08/2022 4:20 PM CDT): Hypertension is worsening Dietary sodium restriction. Weight loss. Regular aerobic exercise. Medication changes per orders. Ambulatory blood pressure monitoring. +losartan to HCTZ; SER CMP, UA today Blood pressure will be reassessed in 4 weeks. Assessment & Plan (09/24/2021 10:52 AM CDT): Hypertension is improving with treatment Continue current treatment regimen. Dietary sodium restriction. Weight loss. Regular aerobic exercise. Blood pressure will be reassessed 6 months. Assessment & Plan (03/24/2021 9:20 AM CDT): Hypertension is improving with treatment Continue current treatment regimen. Dietary sodium restriction. Weight loss. Regular aerobic exercise. Blood pressure will be reassessed 6 months. Assessment & Plan (01/28/2021 3:41 PM CHANDELIER MAKER): Hypertension is improving with treatment and stable Continue current treatment regimen. Dietary sodium restriction. Regular aerobic exercise. Blood pressure will be reassessed at the next regular appointment. Assessment & Plan (01/24/2021 3:18 PM CHANDELIER MAKER): Hypertension is improving with treatment Continue current treatment regimen. Dietary sodium restriction. Regular aerobic exercise. Continue current medications. Medication changes per orders. Blood pressure will be reassessed in 4 weeks. Resolved Problems Problem Noted Date Diagnosed Date Resolved Date Arthralgia of right wrist 11/16/2022 Assessment & Plan (11/16/2022 2:33 PM CHANDELIER MAKER): Acute progression likely chronic OA in nature DDx of spurring from degenerative OA vs atypical gout or inflammatory arthralgia Xray today for baseline, eval for spur Cousneled of symptoms to report, conservative therapies w/ ice, heat, stretching, bracing w/ activity and trial voltaren Update w/ imaging, further labs or rheum consult if ongoing Elevated serum creatinine 03/24/2021 Assessment & Plan (09/24/2021 10:51 AM CDT): Chronic w/o change since 2014. Recommended focusing on HTN control, sparing use of NSAIDs Recheck with upcoming labs Assessment & Plan (03/24/2021 9:29 AM CDT): Chronic w/o change since 2014. Recommended focusing on HTN control, sparing use of NSAIDs (including meloxiam) Recheck with upcoming labs Acute deep vein thrombosis ( DVT) of femoral vein of left lower extremity (CMS/HCC) 01/28/2021 1 Assessment & Plan (03/24/2021 9:21 AM CDT): Clinically improving on Xarelto. Evaluated by hematology who agreed with long-term anticoagulation. Cont with once daily you for maintenance anticoagulation. Assessment & Plan (01/28/2021 3:47 PM CHANDELIER MAKER): No known RF or prior hx of DVTs. Initiating Xarelto 15mg BID x 21 days w/ 20mg Qday thereafter TTE ordered r/o any emboli, valvular disorders Hematology consult to review any concerns with hypercoagulable etiologies. S/E of Xarelto discussed.Recommending anticoag for 6 months (or longer) RTC 1 month for OV and CMP Encounter for medical examin ation to establish care 01/24/2021 01/24/2021 Assessment & Plan (01/24/2021 3:02 PM CHANDELIER MAKER): Personal, surgical and family medical history all updated along with other pertinent health related history. Will follow-up with us for annual CPE in 1-2 months and in the interim with any additional concerns otherwise. Edema of left lower leg 01/24/2021 03/0 12/2020 Assessment & Plan (01/24/2021 4:21 PM CHANDELIER MAKER): Venous insufficiency VS DVT. Neurovascularly intact. Recommending D-dimer, BMP today with further follow-up pending results of testing as will consider venous duplex in left LE with elevated D-dimer. In the interim, conservative approach, monitoring salt intake and possibly compression socks pending D-dimer testing. RTC in 1 month and in the interim regarding results of labs and need for additional testing Acute pain of right knee 01/24/202108/2022 Assessment & Plan (09/24/2021 10:51 AM CDT): Asymptomatic and off Mobic Counseled on preventative methods to prevent OA flare-up Assessment & Plan (03/24/2021 9:25 AM CDT): Recommending OTC tylenol, topical analgesics with sparing use of Meloxicam given Xarelto use. Stable at this time Will continue to monitor Assessment & Plan (01/24/2021 4:20 PM CHANDELIER MAKER): Recommending x-ray imaging of right knee and if negative-physiatry for evaluation of right knee, gastrocnemius to ensure that there is no musculoskeletal concern to explain symptoms. Conservative pain management recommended the interim. Arthritis of left wrist 09/26/2019 04/2 04/2021 Assessment & Plan (01/24/2021 4:19 PM CHANDELIER MAKER): Stable with bracing and activity modifications. Cnt. With p.r.n. use of meloxicam, topical creams. Acute appendicitis 08/17/2016 Impacted cerumen 04/12/2014 01/24/2021 Foreign body in cornea 11/21/200901/24 Encounters Date Type Department Care Team Description 03/19/[address] [address] Claudia Rojas, MIGUELITO Med Refill from Last 3 Months Immunizations Immunization Administration Dates Next Due Influenza, Quadrivalent, Spl it, Preservative Free, Intramuscular 08/18/2016 Influenza, Trivalent, Recomb inant, Egg Free, Preservative Free, Antibiotic Free, IM (FLUBLOK) 09/11/2024 Pfizer SARS-CoV-2 Monovalent Vaccination (12+ Yrs) PURPLE 03/07/2021,02/13/2021 Tdap 06/23/2019 Surgical History Surgery Date Site/Laterality Comments APPENDECTOMY COLONOSCOPY FINGER AMPUTATION Medical History Medical History Date Comments Hypertension Osteoarthritis DVT (deep venous thrombosis) (HCC) Appendicitis Hyperlipidemia Family History Medical History Relation Name Comments Hypertension Brother Prostate cancer Brother Stroke Brother Bladder Cancer Father Bladder Cance r - (Added by Conv) Blood Clot Father Diabetes Father Diabetes Mellit us - (Added by Conv) Hypertension Father Benign Ess[facility] l Hypertension - (Added by TW Conv) Blood Clot Mother Diabetes Mother Diabetes Mellit us - (Added by TW Conv) Hypertension Mother Benign Essentia l Hypertension - (Added by TW Conv) Stroke Mother Hypertension Sister Relation Name Status Comments Brother Alive Father Mother Alive Sister Alive Social History Tobacco Use Types Packs/Day Years Used Date Smoking Tobacco: Never Smokeless Tobacco: Never Tobacco Cessation:Counseling Given: Not Answered Alcohol Use Standard Drinks/Week Comments Never 0 (1 standard drink = 0.6 oz pur e alcohol) AUDIT-C Answer Date Recorded Q1: How often do you have a drink containing alcohol? Never 08/06/2022 Q2: How many drinks containi ng alcohol do you have on a typical day when you are drinking? Patient does not drink Q3: How often do you have si x or more drinks on one occasion? Never 08/06/2022 PHQ-2 Answer Date Recorded PHQ-2 Total Score (If total score is 3 or more points, staff should administer the PHQ-9) 0 09/11/2024 Exercise Vital Sign Answer Date Recorde d On average, how many days pe r week do you engage in moderate to strenuous exercise (like a brisk walk)? 0 days 01/24/2021 On average, how many minutes do you engage in exercise at this level? 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 on file Not on file Not on file Obstetrics History Last Filed Vital Signs Vital Sign Reading Time Taken Comments Blood Pressure 132/84 09/11/2024 2:58 PM CDT Pulse 68 09/11/2024 2:58 PM CDT Temperature 36.3 C (97.3 F) 08/06/2022 3:00 PM CDT Respiratory Rate 19 08/06/2022 3:30 PM CDT Oxygen Saturation 96% 09/11/2024 2:58 PM CDT Inhaled Oxygen Concentration - - Weight 117.5 kg (259 lb) 09/11/2024 2:58 PM CDT Height 184.2 cm (6' 0.5) 05/15/2024 11:31 AM CD T Body Mass Index 34.64 05/15/2024 11:31 AM CDT Plan of Treatment Scheduled Procedures Name Priority Associated Diagnoses Date/Ti me COLONOSCOPY Encounter for screening for malignant neoplasm of colon Health Maintenance Due Date Last Done Comments Hepatitis B Screening 1982 Zoster Vaccine (1 of 2) 2014 Covid-19 Vaccine ( season) 2024 11/11/2022, 04/09/2021, 03/07/2021, Additional history exists Depression Screening 09/11/2025 09/11/2024, 07/07/2023, 05/08/2022, Additional history exists Regular Well Visit/Exam 18-64 09/11/2025 09/11/2024, 07/07/2023, 05/08/2022, Additional history exists Prostate Cancer Screening-PSA 08/31/2026 08/31/2024, 11/02/2023, 07/07/2023, Additional history exists DTaP/Tdap/Td Vaccine (2 - Td or Tdap) 06/23/2029 06/23/2019 Colon Cancer Screening-Colonoscopy 08/06/2032 08/06/2022 Hepatitis C Screening Completed 03/28/2021 Colon Cancer Screening-CT Colonography Discontinued 08/06/2022 Colon Cancer Screening-DNA Stool Discontinued 08/06/2022 Colon Cancer Screening-FIT Discontinued 08/06/2022 Colon Cancer Screening-Sigmoidoscopy Discontinued 08/06/2022 Influenza Vaccine Completed 09/11/2024, 08/18/2016 Pneumococcal vaccine <65 Aged Out No longer eligible based on patient's age to complete this topic Procedures Procedure Name Priority Date/Time Associated Diagnosis Comments PSA SCREEN Routine 08/31/2024 11:22 AM CDT Elevated PSA Family history of prostate cancer Encounter for screening for malignant neoplasm of prostate COLONOSCOPY 08/06/2022 2:33 PM CDT HEPATITIS C ANTIBODY Routine 03/28/2021 9:26 AM CDT Need for hepatitis C screening test from Last 3 Months or Most Recently Relevant to Health Maintenance Results * PSA screen (08/31/2024 11:22 AM CDT) PSA 2.40 < OR = 4.00 ng/mL [facility] Comment: The total PSA value from this assay system is standardized against the WHO standard. The test result will be approximately 20% lower when compared to the equimolar-standardized total PSA ([place]int [place]). Comparison of serial PSA results should be interpreted with this fact in mind. This test was performed using the Siemens chemiluminescent method. Values obtained from different assay methods cannot be used interchangeably. PSA levels, regardless of value, should not be interpreted as absolute evidence of the presence or absence of disease. Blood 08/31/2024 11:2 2 AM CDT 08/31/2024 11:27 AM CDT Narrative [facility] - 09/03/2024 11:45 AM CDT 457 AND 2194 HAS BEEN DELETED PER DOCTORS ORDERS FASTING:NO FASTING: NO Claudia Rojas COAGULATING DRYING SUPERVISOR LAB BLOOD ORDERABLES Final R esult [facility] [address] [place] [address] * COLONOSCOPY (08/06/2022 2:33 PM CDT) Anatomical Region Laterality Modality Other Narrative Procedure Note Benito Rolle MD - 08/06/2022 2:33 PM CDT [facility] Patient Name: Lorena Butterfield Procedure Date: 08/06/2022 2:33 PM Date of : 1965 Admit Type: Outpatient Age: 57 Gender: Male Attending MD: Benito Rolle M.D. Room: [facility] ENDOSCOPY ROOM 4 Note Status: Finalized Procedure: Colonoscopy Indications: Screening for colorectal malignant neoplasm Referring MD: Nat Shelley Providers: Benito Rolle M.D. Medicines: Monitored Anesthesia Care Complications: No immediate complications. Estimated Blood Loss: Estimated blood loss: none. Procedure: Pre-Anesthesia Assessment: - Immediately prior to administration ofmedications, the patient was re-assessed for adequacy to receive sedatives. - The risks and benefits of the procedure and the sedation options and risks were discussed with the patient. All questions were answered and informed consent was obtained. The benefits, risks and alternatives of theprocedure and sedation were discussed and informed consentwas obtained. All questions were answered. Please referto the signed informed consent document in the medical record. The scope was passed under direct vision.The [id number] endoscope was introduced through the anus and advanced to the cecum, identified by appendiceal orifice and ileocecal valve. The colonoscopy was performed without difficulty. The patient tolerated the procedure well. The qualityof the bowel preparation was adequate. The bowel preparation used was GoLYTELY. Findings: The perianal and digital rectal examinations were normal. A 2 mm polyp was found in the cecum. The polyp was sessile. The poly pwas removed with cold biopsy forceps and retrieved. Internal hemorrhoids were found during retroflexion. The hemorrhoids were small. Impression: 1. Single diminutive cecal polyp 2. Small internal hemorrhoids Recommendation: - Await pathology results. Electronically Signed by Benito Rolle M.D. Benito Rolle M.D. 08/06/2022 2:58:16 PM . Number of Addenda: 0 Note Initiated On: 08/06/2022 2:33 PM Recognized by the [employer] for promoting quality in endoscopy Benito Rolle MD ENDOSCOPY PROCEDURES F inal Result * Hepatitis C antibody (03/28/2021 9:26 AM CDT) Hep C Ab Nonreactive Nonreactive [facility] Comment:Antibodies to HCV no t detected. Does NOT exclude the possibility of recent exposure to HCV. Blood specimen (specimen) 03/28/2021 9:26 AM CDT 03/28/2021 10:19 AM CDT Claudia Rojas NP LAB MICROBIOLOGY - GENERAL O RDERABLES Edited Result - Final [facility] Department [place] [address] from Last 3 Months or Most Recently Relevant to Health Maintenance Insurance CIGDASH [place]LON [place] [facility] GROUP ADMINISTRATORS [place] CIG[place] CIGNA IBEW CIGNA IBEW Care Teams Application Support Developer Relationship Specialty Start Date End Date Claudia Rojas NP [facility] DR Martin PHILLIPS [address] [place] [id number] PCP - General Internal Medicine 01/24/21
--- OUTSIDE RECORDS SUMMARY | 2025-06-03 19:56 | XMS_ITS | Referral Summary ---
Author Organization [facility] Address [address] [place] [address] Care Team Providers Care Pediatric Neuropsychologist Name Role Phone Claudia Rojas NP Primary Care Provider [phone] Encounters Date Type Department Care Team Description 03/19/[address] [address] Claudia Rojas NP Med Refill from Last 3 Months Allergies No known active allergies Medications multivitamin-min [...] surveillance Assessment & Plan (11/02/2023 3:50 PM WARD ASSISTANT): Mild, asymp & benign historically at +1 [...] monitoring Assessment & Plan (11/16/2022 2:39 PM WARD ASSISTANT): Intermittent ED sx w/o psychogenic etiology Improve [...] today Assessment & Plan (11/02/2023 4:00 PM WARD ASSISTANT): Hyperlipidemia well controlled on atorvastatin Adherent to [...] today Assessment & Plan (11/16/2022 2:27 PM WARD ASSISTANT): Hyperlipidemia are unchanged, newly increased as of [...] months Assessment & Plan (11/02/2023 3:56 PM WARD ASSISTANT): Remains stable/ near baseline (1.2-1.4) Update routine [...] labs Assessment & Plan (11/16/2022 2:26 PM WARD ASSISTANT): CKD is near baseline- update today Labs/Diagnostics:CMP [...] anticoagulation. Assessment & Plan (11/02/2023 3:55 PM WARD ASSISTANT): Stable on Xarelto. Evaluated by hematology who agreed with long-term anticoagulation. Cont with once daily you for maintenance anticoagulation. Assessment & Plan (07/07/2023 3:58 PM CDT): Stable on Xarelto. Evaluated by hematology who agreed with long-term anticoagulation. Cont with once daily you for maintenance anticoagulation. Assessment & Plan (11/16/2022 2:28 PM WARD ASSISTANT): Stable on Xarelto. Evaluated by hematology who [...] since oct(prior 2.3 in 2019) FHx of business intern Asymp Agreeable to urologic consult for evaluation of both closer PSA monitoring, evaluate impotence concerns Interim psa surveillance until w/ specialist Assessment & Plan (05/15/2024 12:04 PM CDT): Modestly stable 11/20 2.67 from 2.17 in jun(prior 2.3 in 2019) FHx of business intern Asymp Prior discussed urologist eval- preferring lab surveillance Comfortable with this as well if levels remain <3 & asymptomatic Cnt lab surveillance Q4-6 months -update today Assessment & Plan (11/02/2023 3:59 PM WARD ASSISTANT): Remains stable in jun 2.17 from prior 2.3 in 2019 FHx of business intern Asymp Prior discussed urologist eval- preferring lab surveillance Comfortable with this as well if levels remain <3 & asymptomatic Cnt lab surveillance Q4-6 months -update today Assessment & Plan (07/07/2023 4:03 PM CDT): Overdue for update PSA surveillance- Brother's recent dx w/ business intern; otherwise no known FHx business intern Clinically asymptomatic Update PSA today pending further [...] 08/21/2019 Assessment & Plan (11/02/2023 4:06 PM WARD ASSISTANT): Steady & marginal wt gain over last [...] OV Assessment & Plan (11/16/2022 2:35 PM WARD ASSISTANT): Improving Cnt with lifestyle modifications working toward [...] Regular aerobic exercise. Ambulatory blood pressure monitoring. [facility] today RTC 6 months Assessment & Plan (05/15/2024 12:02 PM CDT): Hypertension is stable Continue current treatment regimen. Dietary sodium restriction. Weight loss. Regular aerobic exercise. Ambulatory blood pressure monitoring. [facility] today RTC 6 months Assessment & Plan (11/02/2023 4:05 PM WARD ASSISTANT): Hypertension is stable Continue current treatment regimen. Dietary sodium restriction. Weight loss. Regular aerobic exercise. Ambulatory blood pressure monitoring. [facility] today RTC 4-6 months Assessment & Plan (07/07/2023 4:00 PM CDT): Hypertension is stable Continue current treatment regimen. Dietary sodium restriction. Weight loss. Regular aerobic exercise. Ambulatory blood pressure monitoring. [facility] today RTC 4-6 months Assessment & Plan (11/16/2022 2:27 PM WARD ASSISTANT): Hypertension is improving with treatment Continue current [...] Separate BP medication from AM & PM BMP today Assessment & Plan (05/08/2022 4:20 PM [...] months. Assessment & Plan (01/28/2021 3:41 PM WARD ASSISTANT): Hypertension is improving with treatment and stable Continue current treatment regimen. Dietary sodium restriction. Regular aerobic exercise. Blood pressure will be reassessed at the next regular appointment. Assessment & Plan (01/24/2021 3:18 PM WARD ASSISTANT): Hypertension is improving with treatment Continue current treatment regimen. Dietary sodium restriction. Regular aerobic exercise. Continue current medications. Medication changes per orders. Blood pressure will be reassessed in 4 weeks. Resolved Problems Problem Noted Date Diagnosed Date Resolved Date Arthralgia of right wrist 11/16/2022 Assessment & Plan (11/16/2022 2:33 PM WARD ASSISTANT): Acute progression likely chronic OA in nature [...] anticoagulation. Assessment & Plan (01/28/2021 3:47 PM WARD ASSISTANT): No known RF or prior hx of [...] 01/24/2021 Assessment & Plan (01/24/2021 3:02 PM WARD ASSISTANT): Personal, surgical and family medical history all updated along with other pertinent health related history. Will follow-up with us for annual CPE in 1-2 months and in the interim with any additional concerns otherwise. Edema of left lower leg 01/24/2021 03/12/2020 Assessment & Plan (01/24/2021 4:21 PM WARD ASSISTANT): Venous insufficiency VS DVT. Neurovascularly intact. Recommending [...] monitor Assessment & Plan (01/24/2021 4:20 PM WARD ASSISTANT): Recommending x-ray imaging of right knee and if negative-physiatry for evaluation of right knee, gastrocnemius to ensure that there is no musculoskeletal concern to explain symptoms. Conservative pain management recommended the interim. Arthritis of left wrist 09/26/2019 04/2 04/2021 Assessment & Plan (01/24/2021 4:19 PM WARD ASSISTANT): Stable with bracing and activity modifications. Cnt. With p.r.n. use of meloxicam, topical creams. Acute appendicitis 08/17/2016 Impacted cerumen 04/12/2014 01/24/2021 Foreign body in cornea 11/21/200901/24 Immunizations Immunization Administration Dates Next Due Influenza, Quadrivalent, Spl it, Preservative Free, Intramuscular 08/18/2016 Influenza, Trivalent, Recomb inant, Egg Free, Preservative Free, Antibiotic Free, IM (FLUBLOK) 09/11/2024 [place] SARS-CoV-2 Monovalent Vaccination (12+ Yrs) PURPLE 03/07/2021,02/13/2021 Tdap 06/23/2019 Social History Tobacco Use Types Packs/Day Years [...] on file Legal Sex Male 9:41 PM WARD ASSISTANT Gender Identity Not on file Sexual Orientation Not on file 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 The test result will be approximately 20% lower when compared to the equimolar-standardized total PSA (Clint [place]). Comparison of serial PSA results should be [...] - 09/03/2024 11:45 AM CDT 457 AND 7573 HAS BEEN DELETED PER DOCTORS ORDERS FASTING:NO FASTING: NO Claudia Rojas DIRECTOR PROJECT MANAGEMENT LAB BLOOD ORDERABLES Final R esult [facility] [id number] [address] [place] [id number] * COLONOSCOPY (08/06/2022 2:33 PM CDT) Anatomical Region Laterality Modality Other Narrative Procedure Note Benito Rolle MD - 08/06/2022 2:33 PM CDT [facility] Patient Name: Lorena Butterfield Procedure Date: 08/06/2022 2:33 PM Date of : 1965 Admit Type: Outpatient Age: 57 Gender: Male Attending MD: Benito Rolle M.D. Room: [facility] ENDOSCOPY ROOM 4 Note Status: Finalized [...] The scope was passed under direct vision.The [id number] endoscope was introduced through the anus and [...] On: 08/06/2022 2:33 PM Recognized by the [place] [employer] for promoting quality in endoscopy Benito Rolle MD ENDOSCOPY PROCEDURES F inal Result * Hepatitis C antibody (03/28/2021 9:26 AM CDT) Hep C Ab Nonreactive Nonreactive [facility] Comment:Antibodies to HCV no t detected. Does NOT exclude the possibility of recent exposure to HCV. Blood specimen (specimen) 03/28/2021 9:26 AM CDT 03/28/2021 10:19 AM CDT Claudia Rojas NP LAB MICROBIOLOGY - GENERAL O RDERABLES Edited Result - Final [facility] Department [place] [address] from Last 3 Months or Most Recently Relevant to Health Maintenance Insurance CIGDASH [facility] ADMINISTRATORS IN CIGNA CIGNA IBEW CIGNA IBEW Care Teams Pediatric Neuropsychologist Relationship Specialty Start Date End Date Claudia Rojas NP [address] [place] [address] DR Martin PHILLIPS [address] [place] [id number] PCP - General Internal Medicine 01/24/21
--- OUTSIDE RECORDS SUMMARY | 2025-06-03 19:56 | XMS_ITS | Encounter Summary ---
Author Organization [facility] Address [address] [place] [address] Care Team Providers Care Doorshaker Name Role Phone Claudia Rojas NP Primary Care Provider [phone] Encounter Details Date Type Department Care Team (Late st Contact Info) Description 01/24/2021 Telephone [facility] Radiology at the [address] [address] Brittany Pinon, [place] Social History Tobacco Use Types Packs/Day Years Used Date Smoking Tobacco: Never Smokeless Tobacco: Never Alcohol Use Standard Drinks/Week Comments Never 0 (1 standard drink = 0.6 oz pur e alcohol) AUDIT-C Answer Date Recorded Q1: How often do you have a drink containing alc ohol? Monthly or less 01/24/2021 Q2: How many drinks containi ng alcohol do you have on a typical day when you are drinking? 1 or 2 01/24/2021 Q3: How often do you have si x or more drinks on one occasion? Never 01/24/2021 Exercise Vital Sign Answer Date Recorde d [...] on file Legal Sex Male 9:41 PM HIGH VALUE ASSOCIATE Gender Identity Not on file Sexual Orientation Not on file documented as of this encounter Functional Status documented as of this encounter Plan of Treatment Scheduled Procedures Name Priority Associated Diagnoses Date/Ti me COLONOSCOPY Encounter for screening for malignant neoplasm of colon documented as of this encounter Visit Diagnoses Not on filedocumented in this encounter Care Teams Doorshaker Relationship Specialty Start Date End Date Claudia Rojas NP [facility] DR Martin PHILLIPS [address] [place] [address] PCP - General Internal Medicine 01/24/21 documented as of this encounter
--- NOTE | 2025-06-03 19:58 | ECG_ITS ---
Test Date: 2025-06-03 20:18:14 Measurements Intervals [place] Rate: 67 P: 60 UT: 222 QRS: -51 QRSD: 122 T: -15 QT: 409 QTc: 435 Interpretive Statements SINUS RHYTHM WITH FIRST DEGREE AV BLOCK LEFT ANTERIOR FASCICULAR BLOCK [QRS AXIS <= -45, QR IN I, RS IN II] MINIMAL VOLTAGE CRITERIA FOR LVH, CONSIDER NORMAL VARIANT [MEETS CRITERIA IN ONE OF: R(aVL), S(V1), R(V5), R(V5/V6)+S(V1)] ANTEROSEPTAL MYOCARDIAL INFARCTION , OF INDETERMINATE AGE [40+ ms Q WAVE IN V1-V4] No previous ECG available for comparison Electronically Signed On 06-04-2025 22:31:15 CDT by Young Forde M.D.
--- NOTE | 2025-06-03 20:03 | ED_ITS ---
HPI - Neuro Symptoms/Deficit General Chief Complaint: Neuro Symptoms/Deficit Stated Complaint: left sided weakness Time Seen by Provider: 06/03/25 20:02 History of Present Illness HPI Narrative: About an hour ago patient started having weakness with left side, he noticed when he tried to stand up and could not, the weakness seems to come and go, he also has a severe headache with nausea and vomiting. He is on Xarelto, denies any recent trauma, has never had symptoms like this before. No prior history of stroke. Related Data Allergies Allergy/AdvReac Type Severity Reaction Status Date / Time No Known Allergies Allergy Unknown Verified 06/03/25 20:23 Review of Systems 2 Review of Systems: All systems reviewed & are unremarkable except as noted in HPI and below Exam 2 Narrative: EXAMINATION OF ORGAN SYSTEMS/BODY AREAS: Constitutional: Vital signs per nursing GENERAL: Actively throwing up and appears quite uncomfortable HEAD: Normal with no signs of head trauma. EYES: EOMI, conjunctiva normal ENT: Hearing grossly intact LUNGS: Nonlabored breathing. HEART: [Regular rate and rhythm] ABD: [Soft], [nontender to palpation] EXT: Normal range of motion SKIN: [No rashes or lesions.] NEURO: [Sounds slightly dysarthric. Alert and oriented x3. Following commands. No gross focal sensory or strength deficits, no facial droop.] PSYCH: Normal affect Course Vital Signs Vital signs: Vital Signs Pulse Oximetry 98 06/03/25 19:54 Temperature 98.2 F 06/03/25 20:14 Pulse Rate 64 06/03/25 22:48 Respiratory Rate 11 L 06/03/25 22:48 Blood Pressure 159/98 H 06/03/25 22:47 Pulse Oximetry 100 06/03/25 22:48 Oxygen Delivery Room Air 06/03/25 20:14 MDM - Neuro Symptoms/Deficit MDM Narrative Medical decision making narrative: 59-year-old male with severe headache, nausea/vomiting, L sided weakness all starting 1 hr ago; he is on xarelto, no recent trauma. I did see him from triage; he had no drift to either extremity but was actively retching and extremely uncomfortable; states weakness comes/goes. When I re-evaluated him after CT he was weak on L side; NIHSS 5 (possible dysarthria, L sided weakness and ataxia). D/w Dr Mccormack stroke neuro at [facility]; not TNK candidate as he is on xarelto; recommends just baby aspirin here. Updated patient/ at bedside on plan for adm here w/ neuro consult. D/w Dr Campo. D/w hospitalist. Lab Data 06/03/25 20:00 06/03/25 20:05 Labs: Lab Results 06/03/25 06/03/25 06/03/25 Range/Units 19:57 20:00 20:05 WBC 5.5 (4.5-10.0) K/mm3 RBC 5.16 (4.6-6.20) M/mm3 Hgb 13.6 L (14.0-18.0) g/dL Hct 43.7 (42.0-52.0) % MCV 84.7 (80-100) fl MCH 26.4 (26-34) pg MCHC 31.1 L (32-36) g/dl RDW 14.6 H (11.5-14.5) % Plt Count 196 (150-375) k/mm3 MPV 10.4 (7.4-10.4) fl Immature Gran % (Auto) 0.2 (0-0.5) % Neut % (Auto) 39.7 L (45.5-73.1) % Lymph % (Auto) 50.5 H (18.3-44.2) % [place] % (Auto) 7.7 (2.6-8.5) % Eos % (Auto) 1.5 (0-4.4) % Baso % (Auto) 0.4 (0.2-1.2) % Lymph # (Auto) 2.76 (0.9-3.2) K/mm3 [place] # (Auto) 0.4 (0.1-0.6) K/mm3 Eos # (Auto) 0.1 (0-0.3) K/mm3 Baso # (Auto) 0.0 (0.0-0.1) K/mm3 Abs Immat Gran (auto) 0.01 (0.00-0.031) K/mm3 Absolute Neuts (auto) 2.2 (1.3-6.7) K/mm3 Absolute Nucleated RBC 0.000 (0.0-0.012) K/mm3 Nucleated RBC % 0.0 (0.0-0.2) % PT 12.7 (11.1-14.7) Seconds INR 0.9 APTT 23.7 (22.3-36.8) Seconds Sodium 143 (137-145) mmol/L Potassium 3.6 (3.4-5.0) mmol/L Chloride 106 (98-107) mmol/L Carbon Dioxide 27 (22-30) mmol/L Anion Gap 10 (4-12) mmol/L BUN 15 (9-20) mg/dL Creatinine 1.40 H 1.40 (0.7-1.3) mg/dL Estim Creat Clear Calc Not Reportable Not Reportable Estimated GFR 52 L 52 L (59 - ) Glucose 103 (65-110) mg/dL POC Capillary Glucose 111 H (65-105) mg/dl Calcium 9.5 (8.4-10.2) mg/dL Total Bilirubin 0.7 (0.2-1.3) mg/dL AST 47 (17-59) U/L ALT 53 H (6-50) U/L Alkaline Phosphatase 65 (38-126) U/L Troponin I < 0.012 (0.000-0.034) ng/mL Total Protein 8.6 H (6.3-8.2) g/dL Albumin 4.7 (3.5-5.1) g/dL Urine Color (Yellow) Urine Appearance (Clear) Urine pH (5.0-9.0) Ur Specific [place] (1.001-1.035) Urine Protein (Negative) mg/dL Urine Glucose (UA) (Negative) mg/dL Urine Ketones (Negative) mg/dL Ur Blood (Man) (Negative) Urine Nitrate (Negative) Urine Bilirubin (Negative) Urine Urobilinogen (<2.0) mg/dL Leukocyte Esterase Rfl (Negative) NETO/UL Urine RBC (0-2) /hpf Urine WBC (0-3) /hpf Ur Squamous Epith Cells (Few) /hpf Urine Bacteria /hpf Urine Casts 06/03/25 Range/Units 20:43 WBC (4.5-10.0) K/mm3 RBC (4.6-6.20) M/mm3 Hgb (14.0-18.0) g/dL Hct (42.0-52.0) % MCV (80-100) fl MCH (26-34) pg MCHC (32-36) g/dl RDW (11.5-14.5) % Plt Count (150-375) k/mm3 MPV (7.4-10.4) fl Immature Gran % (Auto) (0-0.5) % Neut % (Auto) (45.5-73.1) % Lymph % (Auto) (18.3-44.2) % [place] % (Auto) (2.6-8.5) % Eos % (Auto) (0-4.4) % Baso % (Auto) (0.2-1.2) % Lymph # (Auto) (0.9-3.2) K/mm3 [place] # (Auto) (0.1-0.6) K/mm3 Eos # (Auto) (0-0.3) K/mm3 Baso # (Auto) (0.0-0.1) K/mm3 Abs Immat Gran (auto) (0.00-0.031) K/mm3 Absolute Neuts (auto) (1.3-6.7) K/mm3 Absolute Nucleated RBC (0.0-0.012) K/mm3 Nucleated RBC % (0.0-0.2) % PT (11.1-14.7) Seconds INR APTT (22.3-36.8) Seconds Sodium (137-145) mmol/L Potassium (3.4-5.0) mmol/L Chloride (98-107) mmol/L Carbon Dioxide (22-30) mmol/L Anion Gap (4-12) mmol/L BUN (9-20) mg/dL Creatinine (0.7-1.3) mg/dL Estim Creat Clear Calc Estimated GFR (59 - ) Glucose (65-110) mg/dL POC Capillary Glucose (65-105) mg/dl Calcium (8.4-10.2) mg/dL Total Bilirubin (0.2-1.3) mg/dL AST (17-59) U/L ALT (6-50) U/L Alkaline Phosphatase (38-126) U/L Troponin I (0.000-0.034) ng/mL Total Protein (6.3-8.2) g/dL Albumin (3.5-5.1) g/dL Urine Color Yellow (Yellow) Urine Appearance Clear (Clear) Urine pH 7.5 (5.0-9.0) Ur Specific [place] 1.029 (1.001-1.035) Urine Protein 1+ H (Negative) mg/dL Urine Glucose (UA) Negative (Negative) mg/dL Urine Ketones Negative (Negative) mg/dL Ur Blood (Man) Trace (Negative) Urine Nitrate Negative (Negative) Urine Bilirubin Negative (Negative) Urine Urobilinogen 1.0 (<2.0) mg/dL Leukocyte Esterase Rfl Negative (Negative) NETO/UL Urine RBC 3-5 H (0-2) /hpf Urine WBC 0-5 (0-3) /hpf Ur Squamous Epith Cells None seen (Few) /hpf Urine Bacteria None seen /hpf Urine Casts 0-2 Critical Care Time Critical Care Time Critical Care Time: Yes Total Critical Care Time: 45 Discharge Plan Discharge Clinical Impression: Left-sided weakness Patient Disposition: Still a Patient Condition: Serious
[2025-06-03 20:07] LABS: Hematocrit 43.7 % (42.0-52.0); Hemoglobin 13.6 g/dL (14.0-18.0); Immature Granulocyte Percent A 0.2 % (0-0.5); Lymphocytes Absolute Auto 2.76 K/mm3 (0.9-3.2); Mean Corpuscular HGB Conc 31.1 g/dl (32-36); Mean Corpuscular Hemoglobin 26.4 pg (26-34); Mean Corpuscular Volume 84.7 fl (80-100); Nucleated Red Blood Cells Absolute Auto 0.000 K/mm3 (0.0-0.012); Nucleated Red Blood Cells Perc 0.0 % (0.0-0.2); Platelet Count Result 196 k/mm3 (150-375); Red Blood Count 5.16 M/mm3 (4.6-6.20); White Blood Count 5.5 K/mm3 (4.5-10.0)
[2025-06-03 20:10] LABS: Estimated Glomerular Filt Rate 52
[2025-06-03 20:16] LABS: INR 0.9; Prothrombin Time 12.7 Seconds (11.1-14.7)
[2025-06-03 20:17] LABS: Partial Thromboplastin Time 23.7 Seconds (22.3-36.8)
--- OUTSIDE RECORDS SUMMARY | 2025-06-03 20:17 | XMS_ITS | Clinical Summary ---
Author Organization [facility] Address [address] [place] [address] Care Team Providers Care Compact Assembler Name Role Phone Harish Teran MD Primary Care Provider [phone] Source Comments [facility],non-owned Affiliates and Associated Physician Practices is amultiple site organization consisting of ambulatory clinics and hospital sitesin [place], [place], [place] and [place]. This disclosure is being madepursuant to the Care Everywhere program and may not contain all information available regarding this patient. Last updated 18.[facility] Allergies No known active allergies Medications * [...] - 05/31/2025 11:59 PM CDT Hospital Encounter [facility] [place] [address] [place] [phone] Perfecto Thompson MD Orthopedics Discharge Disposition: Home or Self Care 05/24/2025 8:30 AM CDT - 05/24/2025 11:59 PM CDT Hospital Encounter [facility] [place] [address] [place] [phone] Perfecto Thompson MD Muldoon, Grace, OT Discharge Disposition: Home or Self Care 05/17/2025 8:27 AM CDT - 05/17/2025 11:59 PM CDT Hospital Encounter [facility] OT [address] [place] [phone] Perfecto Thompson MD Reale, Jennifer, OTR/L Discharge Disposition: Home or Self Care 05/09/2025 8:30 AM CDT - 05/09/2025 11:59 PM CDT Hospital Encounter [facility] OT [address] [place] [address] Perfecto Thompson MD Rudd, Jason, OT Orthopedics Discharge Disposition: Home or Self Care 05/03/2025 1:00 PM CDT - 05/03/2025 11:59 PM CDT Hospital Encounter [facility] OT [address] [place] [phone] Perfecto Thompson MD Pisciotto, Erica D, OT Discharge Disposition: Home or Self Care 04/26/2025 8:28 AM CDT - 04/26/2025 11:59 PM CDT Hospital Encounter [facility] OT [address] [place] [address] Perfecto Thompson MD Franks, Samantha, OT Discharge Disposition: Home or Self Care 04/19/2025 8:30 AM CDT - 04/19/2025 11:59 PM CDT Hospital Encounter [facility] [place] [address] [place] [phone] Perfecto Thompson MD Franks, Samantha, OT Discharge Disposition: Home or Self Care 04/12/2025 8:45 AM CDT - 04/12/2025 11:59 PM CDT Hospital Encounter [facility] [place] [address] [place] [phone] Perfecto Thompson MD Franks, Samantha, OT Discharge Disposition: Home or Self Care 04/05/2025 8:30 AM CDT - 04/05/2025 11:59 PM CDT Hospital Encounter [facility] [place] [address] [place] [phone] Perfecto Thompson MD Franks, Samantha, OT Discharge Disposition: Home or Self Care 03/29/2025 8:30 AM CDT - 03/29/2025 11:59 PM CDT Hospital Encounter [facility] [place] [address] [place] [phone] Perfecto Thompson MD Franks, Samantha, OT Discharge Disposition: Home or Self Care 03/22/2025 8:30 AM CDT - 03/22/2025 11:59 PM CDT Hospital Encounter [facility] [place] [address] [place] [phone] Perfecto Thompson MD Franks, Samantha, OT Discharge Disposition: Home or Self Care 03/08/2025 8:30 AM CDT - 03/08/2025 11:59 PM CDT Hospital Encounter [facility] [place] [address] [place] [phone] Perfecto Thompson MD Pisciotto, Erica D, OT [...] and heating? Not hard at all 11/03/2024 [facility] [place] [facility] Occupat ional [facility] - Occupational Stress [...] any time in the past 12 m [facility], were you homeless or living in a penitentiary (including now)? No 11/03/2024 Sex and Gender Information Value Date Recorded Sex Assigned at Not on file Legal Sex Male 8:20 AM HISTORIC SITE ADMINISTRATOR Gender Identity Not on file Sexual Orientation Not on file Last Filed Vital Signs Vital Sign Reading Time Taken Comments Blood Pressure 140/108 11/05/2024 9:24 AM HISTORIC SITE ADMINISTRATOR Pulse 74 11/05/2024 9:24 AM HISTORIC SITE ADMINISTRATOR Temperature 36.6 C (97.9 F) 11/05/2024 9:24 AM HISTORIC SITE ADMINISTRATOR Respiratory Rate 20 11/05/2024 9:24 AM HISTORIC SITE ADMINISTRATOR Oxygen Saturation 97% 11/04/2024 8:13 PM HISTORIC SITE ADMINISTRATOR Inhaled Oxygen Concentration 40% 11/02/2024 5 :25 PM HISTORIC SITE ADMINISTRATOR Weight 114.3 kg (252 lb) 11/02/2024 9:06 PM HISTORIC SITE ADMINISTRATOR Height 188 cm (6' 2.02) 11/02/2024 9:06 PM HISTORIC SITE ADMINISTRATOR Body Mass Index 32.34 11/02/2024 9:06 PM HISTORIC SITE ADMINISTRATOR Plan of Treatment Upcoming Encounters Date Type Department Care Team (Late st Contact Info) Description 06/07/2025 8:30 AM CDT Appointment [facility] [address] [place] [address] 06/14/2025 8:30 AM CDT Appointment [facility] OT [address] [place] [address] 06/21/2025 8:30 AM CDT Appointment [facility] OT [address] [place] [address] Naa Turcios, OTR/L Health Maintenance Due Date [...] COMPREHENSIVE METABOLIC PANEL STAT 11/01/2024 6:27 PM HISTORIC SITE ADMINISTRATOR from Last 3 Months or Most Recently Relevant to Health Maintenance Results * (ABNORMAL) COMPREHENSIVE METABOLIC PANEL (11/01/2024 6:27 PM HISTORIC SITE ADMINISTRATOR) BUN 18 7 - 26 mg/dL 11/01/2024 7:02 PM HISTORIC SITE ADMINISTRATOR [facility] Creatinine 1.42(H) 0.71 - 1.16 mg/dL 11/01/2024 7:02 PM HISTORIC SITE ADMINISTRATOR [facility] Sodium 139 136 - 145 mmol/L 11/01/2024 7:02 PM [facility] Potassium 3.5 3.5 - 4.5 mmol/L 11/01/2024 7:02 PM [facility] Chloride 107 98 - 107 mmol/L 11/01/2024 7:02 PM [facility] CO2 24 22 - 29 mmol/L 11/01/2024 7:02 PM [facility] Glucose 106(H) 70 - 99 mg/dL 11/01/2024 7:02 PM [facility] Calcium 9.4 8.4 - 10.2 mg/dL 11/01/2024 7:02 PM [facility] Protein Total 7.7 6.0 - 8.3 g/dL 11/01/2024 7:02 PM [facility] Albumin 3.8 3.4 - 5.0 g/dL 11/01/2024 7:02 PM [facility] Bilirubin Total 0.6 0.2 - 1.2 mg/dL 11/01/2024 7:02 PM [facility] Alkaline Phosphatase 62 40 - 150 U/L 11/01/2024 7:02 PM [facility] ALT 34 5 - 55 U/L 11/01/2024 7:02 PM [facility] AST 26 5 - 34 U/L 11/01/2024 7:02 PM [facility] Anion Gap 8 6 - 16 11/01/2024 7:02 PM [facility] BUN/Creatinine Ratio 13 7 - 23 11/01/2024 7:02 PM [facility] Osmolality Calculated 290 275 - 295 mOsm/kg 11/01/2024 7:02 PM [facility] Albumin/Globulin Ratio 1.0(L) 1.1 - 2.3 11/01/2024 7:02 PM [facility] eGFR by CKD-EPI 57(L) >=90 mL/min/1.7 3 m2 11/01/2024 7:02 PM [facility] Blood BLOOD SPECIMEN / Unknown Venipuncture / Unknown 11/01/2024 6:27 PM HISTORIC SITE ADMINISTRATOR 11/01/2024 6:35 PM [facility] Marga G Paiz [facility] - CHEMISTRY ORDER AVA Final Result [facility] [address] [place] [address], [facility] [phone] from Last 3 Months or Most Recently [...] 12:45 PM 03/15/2015 7:09 PM Care Teams Compact Assembler Relationship Specialty Start Date End Date Harish Teran MD [address] [place] [address] [address] [place] [phone] PCP - General Internal Medicine 03/15/15
--- OUTSIDE RECORDS SUMMARY | 2025-06-03 20:17 | XMS_ITS | Encounter Summary ---
Author Organization [facility] Address [address] [place] [address] Care Team Providers Care It Security Analyst Name Role Phone Claudia Rojas NP Primary Care Provider [phone] Encounter Details Date Type Department Care Team (Late st Contact Info) Description 01/24/2021 Telephone [facility] Radiology at the [address] [address] Brittany Pinon, RT Social History Tobacco Use [...] on file Legal Sex Male 9:41 PM REGISTRATION CLERK Gender Identity Not on file Sexual Orientation Not on file documented as of this encounter Functional Status documented as of this encounter Plan of Treatment Scheduled Procedures Name Priority Associated Diagnoses Date/Ti me COLONOSCOPY Encounter for screening for malignant neoplasm of colon documented as of this encounter Visit Diagnoses Not on filedocumented in this encounter Care Teams It Security Analyst Relationship Specialty Start Date End Date Claudia Rojas NP [facility] DR Martin PHILLIPS [address] [place] [phone] PCP - General Internal Medicine 01/24/21 documented as of this encounter
--- OUTSIDE RECORDS SUMMARY | 2025-06-03 20:17 | XMS_ITS | Referral Summary ---
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 Assessment & Plan (11/02/2023 3:55 PM ACCOUNT SPECIALIST): Stable on Xarelto. Evaluated by hematology who agreed with long-term anticoagulation. Cont with once daily you for maintenance anticoagulation. Assessment & Plan (07/07/2023 3:58 PM CDT): Stable on Xarelto. Evaluated by hematology who agreed with long-term anticoagulation. Cont with once daily you for maintenance anticoagulation. Assessment & Plan (11/16/2022 2:28 PM ACCOUNT SPECIALIST): Stable on Xarelto. Evaluated by hematology who [...] since oct(prior 2.3 in 2019) FHx of yard truck driver Asymp Agreeable to urologic consult for evaluation of both closer PSA monitoring, evaluate impotence concerns Interim psa surveillance until w/ specialist Assessment & Plan (05/15/2024 12:04 PM CDT): Modestly stable 11/20 2.67 from 2.17 in jun(prior 2.3 in 2019) FHx of yard truck driver Asymp Prior discussed urologist eval- preferring lab surveillance Comfortable with this as well if levels remain <3 & asymptomatic Cnt lab surveillance Q4-6 months -update today Assessment & Plan (11/02/2023 3:59 PM ACCOUNT SPECIALIST): Remains stable in jun 2.17 from prior 2.3 in 2019 FHx of yard truck driver Asymp Prior discussed urologist eval- preferring lab surveillance Comfortable with this as well if levels remain <3 & asymptomatic Cnt lab surveillance Q4-6 months -update today Assessment & Plan (07/07/2023 4:03 PM CDT): Overdue for update PSA surveillance- Brother's recent dx w/ yard truck driver; otherwise no known FHx yard truck driver Clinically asymptomatic Update PSA today pending further [...] 08/21/2019 Assessment & Plan (11/02/2023 4:06 PM ACCOUNT SPECIALIST): Steady & marginal wt gain over last [...] OV Assessment & Plan (11/16/2022 2:35 PM ACCOUNT SPECIALIST): Improving Cnt with lifestyle modifications working toward [...] Regular aerobic exercise. Ambulatory blood pressure monitoring. [facility] today RTC 6 months Assessment & Plan (05/15/2024 12:02 PM CDT): Hypertension is stable Continue current treatment regimen. Dietary sodium restriction. Weight loss. Regular aerobic exercise. Ambulatory blood pressure monitoring. [facility] today RTC 6 months Assessment & Plan (11/02/2023 4:05 PM ACCOUNT SPECIALIST): Hypertension is stable Continue current treatment regimen. Dietary sodium restriction. Weight loss. Regular aerobic exercise. Ambulatory blood pressure monitoring. [facility] today RTC 4-6 months Assessment & Plan (07/07/2023 4:00 PM CDT): Hypertension is stable Continue current treatment regimen. Dietary sodium restriction. Weight loss. Regular aerobic exercise. Ambulatory blood pressure monitoring. [facility] today RTC 4-6 months Assessment & Plan (11/16/2022 2:27 PM ACCOUNT SPECIALIST): Hypertension is improving with treatment Continue current [...] months. Assessment & Plan (01/28/2021 3:41 PM ACCOUNT SPECIALIST): Hypertension is improving with treatment and stable Continue current treatment regimen. Dietary sodium restriction. Regular aerobic exercise. Blood pressure will be reassessed at the next regular appointment. Assessment & Plan (01/24/2021 3:18 PM ACCOUNT SPECIALIST): Hypertension is improving with treatment Continue current treatment regimen. Dietary sodium restriction. Regular aerobic exercise. Continue current medications. Medication changes per orders. Blood pressure will be reassessed in 4 weeks. Resolved Problems Problem Noted Date Diagnosed Date Resolved Date Arthralgia of right wrist 11/16/2022 Assessment & Plan (11/16/2022 2:33 PM ACCOUNT SPECIALIST): Acute progression likely chronic OA in nature [...] anticoagulation. Assessment & Plan (01/28/2021 3:47 PM ACCOUNT SPECIALIST): No known RF or prior hx of [...] 01/24/2021 Assessment & Plan (01/24/2021 3:02 PM ACCOUNT SPECIALIST): Personal, surgical and family medical history all updated along with other pertinent health related history. Will follow-up with us for annual CPE in 1-2 months and in the interim with any additional concerns otherwise. Edema of left lower leg 01/24/2021 03/12/2020 Assessment & Plan (01/24/2021 4:21 PM ACCOUNT SPECIALIST): Venous insufficiency VS DVT. Neurovascularly intact. Recommending [...] monitor Assessment & Plan (01/24/2021 4:20 PM ACCOUNT SPECIALIST): Recommending x-ray imaging of right knee and if negative-physiatry for evaluation of right knee, gastrocnemius to ensure that there is no musculoskeletal concern to explain symptoms. Conservative pain management recommended the interim. Arthritis of left wrist 09/26/2019 04/2 04/2021 Assessment & Plan (01/24/2021 4:19 PM ACCOUNT SPECIALIST): Stable with bracing and activity modifications. Cnt. With p.r.n. use of meloxicam, topical creams. 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 The test result will be approximately 20% lower when compared to the equimolar-standardized total PSA (Clint [place]). Comparison of serial PSA results should be [...] DOCTORS ORDERS FASTING:NO FASTING: NO Claudia Rojas NOC ENGINEER LAB BLOOD ORDERABLES Final R esult [facility] [id number] [address] * COLONOSCOPY (08/06/2022 2:33 PM CDT) Anatomical Region Laterality Modality Other Narrative Procedure Note Benito Rolle MD - 08/06/2022 2:33 PM CDT [facility] Patient Name: Lorena Butterfield Procedure Date: 08/06/2022 2:33 PM Date of : 1965 Admit Type: Outpatient Age: 57 Gender: Male Attending MD: Benito Rolle M.D. Room: [facility] ENDOSCOPY ROOM 4 Note Status: Finalized Procedure: [...] The scope was passed under direct vision.The [id number] endoscope was introduced through the anus and [...] On: 08/06/2022 2:33 PM Recognized by the [employer] for promoting quality in endoscopy Benito Rolle MD ENDOSCOPY PROCEDURES F inal Result * Hepatitis C antibody (03/28/2021 9:26 AM CDT) Hep C Ab Nonreactive Nonreactive [facility] Comment:Antibodies to HCV no t detected. Does NOT exclude the possibility of recent exposure to HCV. Blood specimen (specimen) 03/28/2021 9:26 AM CDT 03/28/2021 10:19 AM CDT Claudia Rojas NP LAB MICROBIOLOGY - GENERAL O RDERABLES Edited Result - Final [facility] Department [place] [address] from Last 3 Months or Most Recently Relevant to Health Maintenance Insurance [facility] [place] CIGNA CIGNA IBEW CIGNA IBEW Care Teams Claims Examiner Relationship Specialty Start Date End Date Claudia Rojas NP [address] [place] [address] [address]IPS [address] [place] [id number] PCP - General Internal Medicine 01/24/21
--- OUTSIDE RECORDS SUMMARY | 2025-06-03 20:17 | XMS_ITS | Clinical Summary ---
Author Organization [facility] Address [address] [place] [address] Care Team Providers Care Insurance Healthcare Representative Name Role Phone Claudia Rojas NP Primary Care Provider [phone] Allergies No known active allergies Medications multivitamin-min [...] surveillance Assessment & Plan (11/02/2023 3:50 PM CLINICAL RN): Mild, asymp & benign historically at +1 [...] monitoring Assessment & Plan (11/16/2022 2:39 PM CLINICAL RN): Intermittent ED sx w/o psychogenic etiology Improve [...] today Assessment & Plan (11/02/2023 4:00 PM CLINICAL RN): Hyperlipidemia well controlled on atorvastatin Adherent to [...] today Assessment & Plan (11/16/2022 2:27 PM CLINICAL RN): Hyperlipidemia are unchanged, newly increased as of [...] months Assessment & Plan (11/02/2023 3:56 PM CLINICAL RN): Remains stable/ near baseline (1.2-1.4) Update routine [...] labs Assessment & Plan (11/16/2022 2:26 PM CLINICAL RN): CKD is near baseline- update today Labs/Diagnostics:CMP [...] anticoagulation. Assessment & Plan (11/02/2023 3:55 PM CLINICAL RN): Stable on Xarelto. Evaluated by hematology who agreed with long-term anticoagulation. Cont with once daily you for maintenance anticoagulation. Assessment & Plan (07/07/2023 3:58 PM CDT): Stable on Xarelto. Evaluated by hematology who agreed with long-term anticoagulation. Cont with once daily you for maintenance anticoagulation. Assessment & Plan (11/16/2022 2:28 PM CLINICAL RN): Stable on Xarelto. Evaluated by hematology who [...] since oct(prior 2.3 in 2019) FHx of filteration operator Asymp Agreeable to urologic consult for evaluation of both closer PSA monitoring, evaluate impotence concerns Interim psa surveillance until w/ specialist Assessment & Plan (05/15/2024 12:04 PM CDT): Modestly stable 11/20 2.67 from 2.17 in jun(prior 2.3 in 2019) FHx of filteration operator Asymp Prior discussed urologist eval- preferring lab surveillance Comfortable with this as well if levels remain <3 & asymptomatic Cnt lab surveillance Q4-6 months -update today Assessment & Plan (11/02/2023 3:59 PM CLINICAL RN): Remains stable in jun 2.17 from prior 2.3 in 2019 FHx of filteration operator Asymp Prior discussed urologist eval- preferring lab surveillance Comfortable with this as well if levels remain <3 & asymptomatic Cnt lab surveillance Q4-6 months -update today Assessment & Plan (07/07/2023 4:03 PM CDT): Overdue for update PSA surveillance- Brother's recent dx w/ filteration operator; otherwise no known FHx filteration operator Clinically asymptomatic Update PSA today pending [...] 08/21/2019 Assessment & Plan (11/02/2023 4:06 PM CLINICAL RN): Steady & marginal wt gain over last [...] OV Assessment & Plan (11/16/2022 2:35 PM CLINICAL RN): Improving Cnt with lifestyle modifications working toward [...] Regular aerobic exercise. Ambulatory blood pressure monitoring. [facility] today RTC 6 months Assessment & Plan (05/15/2024 12:02 PM CDT): Hypertension is stable Continue current treatment regimen. Dietary sodium restriction. Weight loss. Regular aerobic exercise. Ambulatory blood pressure monitoring. [facility] today RTC 6 months Assessment & Plan (11/02/2023 4:05 PM CLINICAL RN): Hypertension is stable Continue current treatment regimen. Dietary sodium restriction. Weight loss. Regular aerobic exercise. Ambulatory blood pressure monitoring. [facility] today RTC 4-6 months Assessment & Plan (07/07/2023 4:00 PM CDT): Hypertension is stable Continue current treatment regimen. Dietary sodium restriction. Weight loss. Regular aerobic exercise. Ambulatory blood pressure monitoring. [facility] today RTC 4-6 months Assessment & Plan (11/16/2022 2:27 PM CLINICAL RN): Hypertension is improving with treatment Continue current [...] Separate BP medication from AM & PM [facility] today Assessment & Plan (05/08/2022 4:20 PM [...] months. Assessment & Plan (01/28/2021 3:41 PM CLINICAL RN): Hypertension is improving with treatment and stable Continue current treatment regimen. Dietary sodium restriction. Regular aerobic exercise. Blood pressure will be reassessed at the next regular appointment. Assessment & Plan (01/24/2021 3:18 PM CLINICAL RN): Hypertension is improving with treatment Continue current treatment regimen. Dietary sodium restriction. Regular aerobic exercise. Continue current medications. Medication changes per orders. Blood pressure will be reassessed in 4 weeks. Resolved Problems Problem Noted Date Diagnosed Date Resolved Date Arthralgia of right wrist 11/16/2022 Assessment & Plan (11/16/2022 2:33 PM CLINICAL RN): Acute progression likely chronic OA in nature [...] anticoagulation. Assessment & Plan (01/28/2021 3:47 PM CLINICAL RN): No known RF or prior hx of [...] 01/24/2021 Assessment & Plan (01/24/2021 3:02 PM CLINICAL RN): Personal, surgical and family medical history all updated along with other pertinent health related history. Will follow-up with us for annual CPE in 1-2 months and in the interim with any additional concerns otherwise. Edema of left lower leg 01/24/2021 03/0 12/2020 Assessment & Plan (01/24/2021 4:21 PM CLINICAL RN): Venous insufficiency VS DVT. Neurovascularly intact. Recommending [...] monitor Assessment & Plan (01/24/2021 4:20 PM CLINICAL RN): Recommending x-ray imaging of right knee and if negative-physiatry for evaluation of right knee, gastrocnemius to ensure that there is no musculoskeletal concern to explain symptoms. Conservative pain management recommended the interim. Arthritis of left wrist 09/26/2019 04/2 04/2021 Assessment & Plan (01/24/2021 4:19 PM CLINICAL RN): Stable with bracing and activity modifications. Cnt. With p.r.n. use of meloxicam, topical creams. 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 The test result will be approximately 20% lower when compared to the equimolar-standardized total PSA (Clint [place]). Comparison of serial PSA results should be [...] - 09/03/2024 11:45 AM CDT 457 AND 0215 HAS BEEN DELETED PER DOCTORS ORDERS FASTING:NO FASTING: NO Claudia Rojas CHIEF DEPUTY COURT CLERK LAB BLOOD ORDERABLES Final R esult [facility] [address] [place] [address] * COLONOSCOPY (08/06/2022 2:33 PM CDT) Anatomical Region Laterality Modality Other Narrative Procedure Note Benito Rolle MD - 08/06/2022 2:33 PM CDT [facility] Patient Name: Lorena Butterfield Procedure Date: 08/06/2022 2:33 PM Date of : 1965 Admit Type: Outpatient Age: 57 Gender: Male Attending MD: Benito Rolle M.D. Room: [facility] ENDOSCOPY ROOM 4 Note Status: Finalized [...] The scope was passed under direct vision.The [id number] endoscope was introduced through the anus and [...] On: 08/06/2022 2:33 PM Recognized by the [employer] for promoting quality [...] GENERAL O RDERABLES Edited Result - Final [facility] Department [place] [address] from Last 3 Months or Most Recently Relevant to Health Maintenance Insurance CIGDASH [facility] [place] CIGNA CIGNA IBEW CIGNA IBEW Care Teams Insurance Healthcare Representative Relationship Specialty Start Date End Date Claudia Rojas NP [facility] [address] [place] [id number] PCP - General Internal Medicine 01/24/21
[2025-06-03 20:20] LABS: Alanine Aminotransferase 53 U/L (6-50); Albumin Level 4.7 g/dL (3.5-5.1); Alkaline Phosphatase 65 U/L (38-126); Anion Gap 10 mmol/L (4-12); Aspartate Amino Transferase 47 U/L (17-59); Bilirubin,Total 0.7 mg/dL (0.2-1.3); Blood Urea Nitrogen 15 mg/dL (9-20); Calcium 9.5 mg/dL (8.4-10.2); Carbon Dioxide 27 mmol/L (22-30); Chloride 106 mmol/L (98-107); Estimated Glomerular Filt Rate 52; Glucose 103 mg/dL (65-110); Potassium 3.6 mmol/L (3.4-5.0); Sodium 143 mmol/L (137-145); Total Protein 8.6 g/dL (6.3-8.2)
[2025-06-03] MEDS: METOCLOPRAMIDE HCL INJ 10 MG/2 ML VIAL IV PUSH (20:28)
[2025-06-03 20:32] LABS: Troponin I < 0.012 ng/mL (0.000-0.034)
[2025-06-03] MEDS: LORazepam INJ (*CRX) 2 MG/ML VIAL 1 MG IV PUSH (20:48)
[2025-06-03 20:56] LABS: Add Urine Microscopic? YES; Appearance Urine Clear (Clear); Glucose Urine UA Negative (Negative); Leukocyte Esterase Ur Negative LEU/UL (Negative); Nitrate Urine Negative (Negative); Non Pathogenic Casts 0-2; Specific Grav Ur 1.029 (1.001-1.035)
[2025-06-03] MEDS: ASPIRIN 81 MG CHEWABLE TABLET PO (21:11)
--- NOTE | 2025-06-03 21:23 | PM.IMHP ---
H&P: HPI History of Present Illness Date/Time: 06/03/25 21:23 Chief Complaint: Left-Sided Weakness Narrative: 59 y/o M with PMH of DVT (around 10 year ago) on chronic anticoagulation presents here with left sided weakness. The patient presents here from home on 06/03 for further evaluation of left sided weakness. Patient reports a last known well at 6 p.m. Onset of symptoms at 6:30 p.m. this evening. reports he got up out of his chair like he was going somewhere. Then leaned over the TV stand and reported he was weak. reports he did not look well and she asked if he had taken his daily medicine, which he had not. Then reported a headache. A little while later he then reported his left side was weak which prompted his to take him to the ER. He and his then took her personal vehicle to the emergency department. While in route to the ER, he developed nausea, and vomiting x1. He describes the headache as in the center, radiation into the posterior, constant, and no photophobia or phonophobia. reports he had a distant history of headaches but has not complained about them in a long time. Left-sided weakness is affecting his left upper extremity and left lower extremity. He reports the weakness has been intermittent. Now reporting some numbness to the left side. Denies changes in speech, changes in vision, changes in speech (prior to Benadryl administration) or changes in gait. The patient is on anticoagulation due to a history of a DVT - Xarelto. He denies previous history of stroke. Initial VS at presentation: 98.2? F, HR 67, R 16, 187/107, and 98% on RA. ED workup showed: No leukocytosis, hemoglobin 13.6, normal coags, creatinine 1.4 and GFR 52 (1.3 and GFR >60 10/2024), glucose 111, initial troponin negative, UA showed 1+ protein and 3-5 RBC otherwise unremarkable. Head CT showed no acute intracranial process. Head/neck CTA showed no large vessel intracranial occlusion, high-grade intracranial stenosis, or aneurysm. No carotid or vertebral artery occlusion/dissection /significant stenosis. 2.8 cm right thyroid nodule. EKG showed sinus rhythm with first-degree AV block, left anterior fascicular block, minimal voltage criteria for LVH, anteroseptal MT of indeterminate age (awaiting formal read). Review of Systems Review of Systems: All systems reviewed & are unremarkable except as noted in HPI and below Meds Home Medications and Allergies Allergies Allergy/AdvReac Type Severity Reaction Status Date / Time No Known Allergies Allergy Unknown Verified 06/03/25 20:23 Vital Signs Vital Signs - 24 hr 06/03/25 19:54 06/03/25 20:14 06/03/25 20:21 Temperature 98.2 F Pulse Rate 67 62 Respiratory Rate 16 14 Blood Pressure 187/107 H Pulse Oximetry 98 99 95 Oxygen Delivery Room Air Exam Const: General: comfortable and no acute distress Other: , male, nontoxic appearance HENMT: Face/Nose/Sinus: Normal nares present Mouth: Yes moist mucous membranes Eyes: General: appearance normal, both eyes and all related structures Sclera: sclerae normal Pupils: Equal, round and reactive pupils present EOM: EOMs intact bilaterally Resp: Effort & Inspection: normal respiratory effort Auscultation: clear to auscultation bilaterally Cardio: Rate: regular rate Rhythm: regular rhythm Other: S1-S2 present without murmur, rub, ectopy GI: Other: Abdomen soft, nondistended, nontender. Normoactive bowel sounds in all quadrants. Skin: General skin exam: normal color and no rashes or lesions noted Wounds: no wounds Neuro: Speech: normal speech Other: Initial NIHSS 1a: Level of Consciousness 0 1b: LOC Questions 0 1c:?LOC Tasks 0 2:?Best Gaze 0 3:?Visual?Kaiser 0 4: Facial Palsy 0 5a: Motor Arm?R 0 5b: Motor Arm L 1 6a:?Motor Leg R 0 6a:?Motor Leg L 0 7: Limb Ataxia - NELLIE, patient somnolent and generally weak post-Benadryl 8: Sensation 1 9:?Language/Aphasia 0 10:?Dysarthria? 0 11: Extinction and Inattention 0 Total: 2, however limited noticeable asymmetric weakness in the upper extremities, left worse than right. Plus five in the lower extremities and equal. Mild dysarthria noted, however patient reports this is new after Benadryl administration. Now reporting sensation changed to the left side. No facial droop per gaze palsy. Ataxia unable to be assessed due to level of somnolence post Benadryl. Extrem: General: normal to inspection Psych: Mental Status: mental status grossly normal Affect: normal affect Other: Good insight and judgment, + H&P: Results Labs Labs: Short CBC 06/03/25 Range/Units 20:00 WBC 5.5 (4.5-10.0) K/mm3 Hgb 13.6 L (14.0-18.0) g/dL Hct 43.7 (42.0-52.0) % Plt Count 196 (150-375) k/mm3 BMP 06/03/25 06/03/25 20:00 20:05 Sodium 143 Potassium 3.6 Chloride 106 Carbon Dioxide 27 BUN 15 Creatinine 1.40 H 1.40 Glucose 103 Calcium 9.5 Cardiac Enzymes 06/03/25 Range/Units 20:00 Troponin I < 0.012 (0.000-0.034) ng/mL Liver Function 06/03/25 Range/Units 20:00 Total Bilirubin 0.7 (0.2-1.3) mg/dL AST 47 (17-59) U/L ALT 53 H (6-50) U/L Alkaline Phosphatase 65 (38-126) U/L Albumin 4.7 (3.5-5.1) g/dL Urine 06/03/25 Range/Units 20:43 Urine Color Yellow (Yellow) Urine Appearance Clear (Clear) Urine pH 7.5 (5.0-9.0) Ur Specific Pine 1.029 (1.001-1.035) Urine Protein 1+ H (Negative) mg/dL Urine Glucose (UA) Negative (Negative) mg/dL Assessment and Plan Assessment and plan (1) Left-sided weakness: Code(s): R53.1 - Weakness Status: Acute Assessment and Plan: New deficits of left sided weakness (LUE and LLE) with onset of symptoms at 6:30 p.m. on 06/03. Last known well at 6 p.m. on 06/03. Initial NIHSS in ED: 5 - admission for observation and telemetry - not candidate for thrombolytics as he is already on Xarelto - not candidate for thrombectomy, no LVO on CTA - Head CT and CTA Head/Neck did not show any acute findings - neurology consulted - check brain MRI w/wo ordered and echo w/Bubble ordered - neuro checks Q4 - speech/swallow eval - PT/OT to eval and treat - monitor daily labs, check lipid panel and A1C - start Atorvastatin 40 mg PO, Plavix 75 mg PO, and ASA 81 mg - consider 30 day event monitoring at discharge Differential includes complex migraine, CVA, TIA (2) Headache: Qualifiers: Headache chronicity pattern: acute headache Headache type: unspecified Code(s): R51.9 - Headache, unspecified Status: Acute Assessment and Plan: - developed shortly after developing left sided weakness on 06/03 - initial treatment with aspirin, Benadryl, Ativan, and metoclopramide. - patient not candidate for Toradol as he is already on Xarelto and has possible stroke. Will add IV fluids, 1L bolus -> 100 mL/hr x1L - BP initially hypertensive at 187/107, will allow moderate amount of permissive hypertension as there is high concern for stroke and patient is not candidate for TNK or thrombectomy. Differential includes hypertensive urgency as source of headache, stroke as source of headache, or complex migraine. (3) Elevated blood pressure reading: Code(s): R03.0 - Elevated blood-pressure reading, without diagnosis of hypertension Status: Acute Assessment and Plan: - initial BP 187/107, currently 166/110. Allowing for permissive hypertension given patient has concern for stroke. May be contributing to headache. Reviewed outside med rec, no antihypertensive medications listed. - monitor Plan Diet: Heart healthy GI Prophylaxis: not currently indicated DVT Prophylaxis: Xarelto IV fluids: 1L bolus -> 100 mL/hr x1L Lines/Tubes: peripheral IV Code Status: full code Quality VTE Prophylaxis VTE prophylaxis: pharmacologic ordered Hospitalist [facility] Advance Care Plan I have confirmed that the patient's Advanced Care Plan is present, code status is documented, or surrogate decision maker is listed in patient medical record.: Yes Medication Reconciliation I have utilized all available resources to obtain, update and review the patients current medications (includes all prescriptions, OTC, herbals, cannabis, and nutritional supplements).: Yes
[2025-06-03] MEDS: LACTATED RINGERS 1,000 ML 999 ML IV CONT (21:52)
--- NOTE | 2025-06-03 23:34 | ADMGEN ---
This patient, Carlos Butterfield, was admitted to IMU Room 204-01. Patient/family oriented to hospital policies and general routines including ID bracelet, bed and alarms, visiting hours, pain management, procedures, bathroom and other care routines, personal items, smoking policy, room service/diet, and visiting hours. Information on how to activate the Rapid Response Team has been discussed. Patient/Family are encouraged to report perceived risks to care and to ask questions if they do not understand what they are told or what they should do.
[2025-06-04] VITALS (12 sets, daily range): BP systolic 132–169; BP diastolic 83–94; PULSE 55–70; RESP 14–18; TEMP 36.6–36.9; O2SAT 97–100
--- NOTE | 2025-06-04 | ECHO_ITS ---
Patient Info Name: Carlos Butterfield Age: 60 years : 1965 Gender: Male Ht: 74 in Wt: 263 lbs BSA: 2.53 m2 HR: 60 bpm BP: 169 / 93 mmHg Technical Quality: Good Exam Date: 06/04/2025 9:30 AM Patient Status: I Admit Date: 06/03/2025 Exam Type: CA echo dop bubble study w con Complete two-dimensional, color flow and Doppler transthoracic echocardiogram is performed with agitated saline. Staff Referring Physician: Lexii Jacobs Gym Attendant: Carrie Abdalla Attending Provider: Neli Ji DO Contrast/Agitated Saline Contrast/Ag. Saline: Agitated Saline Amount: 16.00 ml Summary 1. Left ventricular systolic function is normal, estimated at 60-65. 2. There is moderately increased left ventricular wall thickness. 3. The left ventricular diastolic function is grade II diastolic dysfunction. 4. There is mild mitral valve regurgitation. 5. There is mild tricuspid valve regurgitation. 6. No pulmonary hypertension, estimated pulmonary arterial systolic pressure is 26 mmHg. 7. There is mild pulmonic regurgitation. 8. Intact interatrial septum visualized by agitated saline imaging. Left Ventricle Left ventricular chamber dimension is normal. Left ventricular systolic function is normal, estimated at 60-65. There is moderately increased left ventricular wall thickness. Left ventricular septal wall motion is normal. The left ventricular diastolic function is grade II diastolic dysfunction. Right Ventricle Right ventricular chamber dimension is normal. Right ventricular systolic function is normal. Left Atria Left atrial chamber dimension is normal. Right Atria Right atrial chamber dimension is normal. Atrial Septum Intact interatrial septum visualized by agitated saline imaging. Aortic Valve The aortic valve is trileaflet. There is mild aortic valve sclerosis. There is no aortic valve stenosis. There is no aortic valve regurgitation. Pulmonic Valve The pulmonic valve is normal. There is no pulmonic valve stenosis. There is mild pulmonic regurgitation. Mitral Valve The mitral valve has normal leaflets. There is no mitral valve stenosis. There is mild mitral valve regurgitation. Tricuspid Valve The tricuspid valve leaflets are normal. There is no significant tricuspid valve stenosis. There is mild tricuspid valve regurgitation. No pulmonary hypertension, estimated pulmonary arterial systolic pressure is 26 mmHg. Pericardium/Pleural The pericardium appears normal. There is no pericardial effusion. Inferior Vena Cava Normal inferior vena cava with >50% collapse upon inspiration consistent with normal right atrial pressure, 10 mmHg. Aorta The aortic root size at the sinus of Valsalva is normal. The prox ascending aorta size is normal. Left Ventricular Outflow Tract Name Value Normal LVOT 2D LVOT Diameter 2.0 cm LVOT Doppler LVOT Peak Velocity 116 cm/s LVOT Peak Gradient 5 mmHg LVOT Mean Gradient 3 mmHg LVOT VTI 21 cm LVOT VTI/AV VTI Ratio 0.7 LVOT Stroke Volume 64 ml LVOT CO 3.9 l/min LVOT CI 1.5 l/min/m2 Pulmonic Valve Name Value Normal PV Doppler PV Peak Velocity 100 cm/s PV Peak Gradient 4 mmHg PV Regurgitation Doppler [place] Peak End Diastolic Velocity 90 cm/s Mitral Valve Name Value Normal MV Diastolic Function MV E Peak Velocity 69 cm/s MV A Peak Velocity 62 cm/s MV E/A 1.1 MV Decel Time (PW) 231 ms MV Annular TDI MV E/e' (Septal) 9.4 MV E/e' (Lateral) 8.3 MV E/e' (Average) 8.8 Tricuspid Valve Name Value Normal TV Regurgitation Doppler TR Peak Velocity 200 cm/s TR Peak Gradient 16 mmHg Estimated PAP/RSVP RA Pressure 10 mmHg <=5 PA Systolic Pressure 26 mmHg <36 RV Systolic Pressure 26 mmHg <36 TV Annular TDI TV Lateral Beena s' Velocity 13.6 cm/s >=9.5 Aortic Valve Name Value Normal AV Doppler AV Peak Velocity 137 cm/s AV Peak Gradient 8 mmHg AV Mean Gradient 5 mmHg AV VTI 33 cm AV Area (Cont Eq VTI) 2.0 cm2 >=3.0 AV Area (Cont Eq Woo) 2.5 cm2 AV DI (Woo) 0.84 AV Regurgitation 2D LVOT Area 3.0 cm2 Ventricles Name Value Normal LV Dimensions 2D/MM IVS Diastolic Thickness (2D) 1.3 cm 0.6-1.0 LVID Diastole (2D) 3.9 cm 4.2-5.8 LVIW Diastolic Thickness (2D) 1.3 cm 0.6-1.0 LVID Systole (2D) 2.5 cm 2.5-4.0 LVOT Diameter 2.0 cm LV Mass (2D Cubed) 179.06 g 88.00-224.00 LV Mass Index (2D Cubed) 71 g/m2 49-115 Relative Wall Thickness (2D) 0.66 <=0.42 LV Fractional Shortening/Ejection Fraction 2D/MM LV Fractional Shortening (2D) 36 % 25-43 LV EF (2D Teichholz) 67 % LV Diastolic Volume (4C MOD) 96 ml LV EF (4C MOD) 50 % LV Diastolic Volume (2C MOD) 94 ml LV EF (2C MOD) 59 % LV Diastolic Volume (BP MOD) 96 ml 62-150 LV Diastolic Volume Index (BP MOD) 38 ml/m2 34-74 LV Systolic Volume (BP MOD) 44 ml 21-61 LV Systolic Volume Index (BP MOD) 17 ml/m2 11-31 LV EF (BP MOD) 54 % 52-72 LV Diastolic Length (4C) 9.4 cm LV Systolic Length (4C) 8.2 cm LV Stroke Volume (4C MOD) 48 ml Atria Name Value Normal LA Dimensions LA Volume (4C A-L) 65 ml LA Volume (BP A-L) 70 ml RA Dimensions RA Systolic Major [place] Length (4C) 4.8 cm 2.1-2.7 RA Area (4C) 11.1 cm2 <=18.0 Report Signatures
[2025-06-04] MEDS: LACTATED RINGERS 1,000 ML 150 ML IV CONT (00:10)
[2025-06-04 04:13] LABS: Hematocrit 39.5 % (42.0-52.0); Hemoglobin 12.3 g/dL (14.0-18.0); Immature Granulocyte Percent A 0.4 % (0-0.5); Lymphocytes Absolute Auto 1.74 K/mm3 (0.9-3.2); Mean Corpuscular HGB Conc 31.1 g/dl (32-36); Mean Corpuscular Hemoglobin 26.2 pg (26-34); Mean Corpuscular Volume 84.2 fl (80-100); Nucleated Red Blood Cells Absolute Auto 0.000 K/mm3 (0.0-0.012); Nucleated Red Blood Cells Perc 0.0 % (0.0-0.2); Platelet Count Result 177 k/mm3 (150-375); Red Blood Count 4.69 M/mm3 (4.6-6.20); White Blood Count 4.8 K/mm3 (4.5-10.0)
[2025-06-04 04:23] LABS: Alanine Aminotransferase 44 U/L (6-50); Albumin Level 3.9 g/dL (3.5-5.1); Alkaline Phosphatase 59 U/L (38-126); Anion Gap 8 mmol/L (4-12); Aspartate Amino Transferase 40 U/L (17-59); Bilirubin,Total 0.6 mg/dL (0.2-1.3); Blood Urea Nitrogen 14 mg/dL (9-20); Calcium 9.2 mg/dL (8.4-10.2); Carbon Dioxide 26 mmol/L (22-30); Chloride 106 mmol/L (98-107); Cholesterol 199 mg/dL (0-200); Estimated CRCL calculation 79 ml/min; Estimated Glomerular Filt Rate > 60; Glucose 107 mg/dL (65-110); HDL Direct 42 mg/dL; Potassium 3.5 mmol/L (3.4-5.0); Sodium 140 mmol/L (137-145); Total Protein 7.1 g/dL (6.3-8.2); Triglycerides 134 mg/dL (<150)
[2025-06-04 04:29] LABS: Hemoglobin A1C 6.2 % (<5.7)
[2025-06-04] MEDS: CLOPIDOGREL BISULFATE 75 MG TABLET PO (09:01)
[2025-06-04] MEDS: ATORVASTATIN 40 MG TABLET PO (09:02)
[2025-06-04] MEDS: ASPIRIN 81 MG ENTERIC TABLET PO (09:02)
--- NOTE | 2025-06-04 16:27 | P.CONNEU_ITS ---
Assessment and Plan Assessment and plan (1) Right-sided cerebrovascular accident (CVA): Code(s): I63.9 - Cerebral infarction, unspecified Status: Acute (2) Hypertension: Code(s): I10 - Essential (primary) hypertension Status: Acute Plan We shall follow the results echocardiogram. She should be kept on dual antiplatelets and statins for now. Physical therapy and occupational therapy should be helpful and will continue. the patient's was present the time of the evaluation and we discussed The findings. Of the brain was performed which shows infarct in the right temporal parietal area. Official reading from the radiologist is awaited. Under control the blood pressure however 1 avoid hypotension for next 48 hours. Symptomatic treatment for the headache can be offered. Consult date: 06/04/25 HPI: Carlos Butterfield is a 60 year old male With history of the onset of weakness in the left side of the body. When he presented to the emergency room his blood pressure 187/107 and was noted to have some weakness in the left side of the body. A CT scan of brain and CT angiogram of the head and neck were performed which did not show any abnormalities. He has a been complaining of headache. He started on aspirin Plavix and Lipitor consulting with the stroke service. There is no prior history of stroke or head trauma or heart problems however been on Xarelto for last 8-9 years for DVT however he only had 1 bout of DVT. According to emergency room on note his NIH score was 5. Patient denies any difficulty speech or swallowing. In fact he feels the left-sided weakness is slightly better than what it was when he initially came. Review of Systems 2 Review of Systems: All systems reviewed & are unremarkable except as noted in HPI and below PMFSH Past Medical History Medical History (Updated 06/04/25 @ 16:30 by Areli Ya MD) Hypertension Right-sided cerebrovascular accident (CVA) Family History Family History (Updated 06/03/25 @ 23:41 by Klaudia Skinner RN) Mother Cerebrovascular accident Father Hypertension Diabetes mellitus Sibling Malignant neoplasm of prostate Cerebrovascular accident Social History Social History Smoking status: Never smoker Alcohol intake: never Substance use: never Spiritual care concerns: No Meds Home Medications and Allergies Allergies Allergy/AdvReac Type Severity Reaction Status Date / Time No Known Allergies Allergy Unknown Verified 06/03/25 20:23 Vital Signs Vital Signs - 24 hr 06/03/25 19:54 06/03/25 20:14 06/03/25 20:15 Temperature 98.2 F Pulse Rate 67 67 Respiratory Rate 16 18 Blood Pressure 187/107 H Pulse Oximetry 98 99 100 Oxygen Delivery Room Air 06/03/25 20:21 06/03/25 20:25 06/03/25 20:30 Temperature Pulse Rate 62 61 72 Respiratory Rate 14 14 20 Blood Pressure 186/107 H Pulse Oximetry 95 96 Oxygen Delivery 06/03/25 20:45 06/03/25 21:07 06/03/25 21:18 Temperature Pulse Rate 68 65 80 Respiratory Rate 15 12 15 Blood Pressure Pulse Oximetry 96 Oxygen Delivery 06/03/25 21:30 06/03/25 21:33 06/03/25 21:45 Temperature Pulse Rate 71 68 67 Respiratory Rate 11 L 11 L 12 Blood Pressure 183/115 H Pulse Oximetry 97 97 98 Oxygen Delivery 06/03/25 21:47 06/03/25 21:48 06/03/25 22:00 Temperature Pulse Rate 66 65 73 Respiratory Rate 11 L 12 12 Blood Pressure 166/110 H Pulse Oximetry 98 97 98 Oxygen Delivery 06/03/25 22:02 06/03/25 22:15 06/03/25 22:17 Temperature Pulse Rate 63 65 63 Respiratory Rate 12 11 L 12 Blood Pressure 183/117 H 166/109 H Pulse Oximetry 99 100 99 Oxygen Delivery 06/03/25 22:36 06/03/25 22:47 06/03/25 22:48 Temperature Pulse Rate 64 64 64 Respiratory Rate 12 11 L 11 L Blood Pressure 159/98 H Pulse Oximetry 100 100 100 Oxygen Delivery 06/03/25 23:16 06/03/25 23:40 06/04/25 00:00 Temperature 97.9 F Pulse Rate 64 60 Respiratory Rate 18 16 Blood Pressure 146/98 H 144/83 H Pulse Oximetry 97 98 Oxygen Delivery Room Air 06/04/25 00:00 06/04/25 02:00 06/04/25 04:00 Temperature Pulse Rate 61 61 Respiratory Rate Blood Pressure Pulse Oximetry Oxygen Delivery Room Air 06/04/25 04:00 06/04/25 04:00 06/04/25 06:00 Temperature 98.2 F Pulse Rate 58 L 56 L 60 Respiratory Rate 14 Blood Pressure 169/93 H Pulse Oximetry 99 Oxygen Delivery 06/04/25 08:00 06/04/25 08:00 06/04/25 10:00 Temperature 97.9 F Pulse Rate 55 L 58 L 62 Respiratory Rate 18 Blood Pressure 165/93 H Pulse Oximetry 98 Oxygen Delivery 06/04/25 12:00 06/04/25 12:00 06/04/25 12:00 Temperature 98.2 F Pulse Rate 62 70 Respiratory Rate 18 Blood Pressure 136/88 Pulse Oximetry 97 Oxygen Delivery Room Air 06/04/25 13:03 06/04/25 14:40 Temperature Pulse Rate Respiratory Rate Blood Pressure Pulse Oximetry Oxygen Delivery Room Air Room Air Exam 2 Const: General: cooperative, well developed and alert O rientation/consciousness: patient oriented x3 HENMT: Head: atraumatic Mouth: Yes oropharynx normal Eyes: Alignment and Position: position normal Pupils: Equal, round and reactive pupils present EOM: EOMs intact bilaterally Neck: Neck: supple Resp: Effort & Inspection: normal respiratory effort Cardio: Rate: regular rate Rhythm: regular rhythm Skin: General skin exam: normal color Neuro: General: patient oriented x3 Cranial nerves: Yes CN's II-XII intact bilaterally, Yes Equal, round and reactive pupils present and Yes Midline tongue present Cognition (Neuro): normal cognition Speech: normal speech Motor exam (neuro): 5/5 motor strength present throughout ( Mild weakness of the left upper limb power grade 4 +over 5. Lower limb l) Sensory Exam: normal sensation Coordination: [id number] test normal Other: rapid alternating movement of the left upper limb slightly impaired. Mild flattening of the left nasolabial fold. Visual pulido by confrontation were normal. No aphasia or dysarthria. Extrem: General: normal to inspection Psych: Mental Status: mental status grossly normal Affect: normal affect Results Labs 06/04/25 03:45 06/04/25 03:45 Labs: Short CBC 06/03/25 06/04/25 Range/Units 20:00 03:45 WBC 5.5 4.8 (4.5-10.0) K/mm3 Hgb 13.6 L 12.3 L (14.0-18.0) g/dL Hct 43.7 39.5 L (42.0-52.0) % Plt Count 196 177 (150-375) k/mm3 BMP 06/03/25 06/03/25 06/04/25 20:00 20:05 03:45 Sodium 143 140 Potassium 3.6 3.5 Chloride 106 106 Carbon Dioxide 27 26 BUN 15 14 Creatinine 1.40 H 1.40 1.18 Glucose 103 107 Calcium 9.5 9.2 Cardiac Enzymes 06/03/25 Range/Units 20:00 Troponin I < 0.012 (0.000-0.034) ng/mL Liver Function 06/03/25 06/04/25 Range/Units 20:00 03:45 Total Bilirubin 0.7 0.6 (0.2-1.3) mg/dL AST 47 40 (17-59) U/L ALT 53 H 44 (6-50) U/L Alkaline Phosphatase 65 59 (38-126) U/L Albumin 4.7 3.9 (3.5-5.1) g/dL EXAMINATION: CTA brain carotid DATE: 06/03/2025 20:12 INDICATION: vomiting and L sided weakness TECHNIQUE: Computed tomographic angiography (CTA) of the head and neck was performed with 100 mL Omnipaque-350 intravenous contrast. Automated exposure control and iterative reconstruction technique were employed. The dose-length product was 1188.31 mGy-cm. Maximum intensity projection and volume rendered 3D- reconstructions were created by the technologist on a separate workstation. COMPARISON: CT brain, same date FINDINGS: CTA HEAD: No large vessel occlusion, aneurysm, high flow vascular malformation, nidus or extravasation. Symmetric parenchymal enhancement. Patent cerebral veins CTA NECK: Aortic arch and proximal great vessels: Bovine arch anatomy. No significant atherosclerotic plaque. Right common carotid, carotid bifurcation, and internal carotid artery: No plaque.There is 0% stenosis of the proximal right internal carotid artery relative to normal distal artery lumen diameter (NASCET criteria). Left common carotid, carotid bifurcation, and internal carotid artery: No plaque.There is 0% stenosis of the proximal left internal carotid artery relative to normal distal artery lumen diameter (NASCET criteria). Vertebral arteries: No significant plaque or stenosis. Vertebral arteries co- dominant. Other findings: 2.8 cm right thyroid nodule. Periodontal disease. Right maxillary arch dental implants. Mild diffuse congenital appearing cervical canal narrowing. IMPRESSION: No large vessel intracranial occlusion, high-grade intracranial stenosis, or aneurysm. No carotid or vertebral artery occlusion, dissection, or significant stenosis. 2.8 cm right thyroid nodule, recommend o utpatient thyroid ultrasound for further characterization. Reviewed, dictated and finalized at location K. Imaging Attestation: I personally reviewed and interpreted this imaging study as follows: ( MRI of the brain) My impression: New infarct noted in the right posterior temporal parietal area
--- NOTE | 2025-06-04 19:07 | P.PNIM_ITS ---
Progress Note: A&P Assessment and Plan (1) Left-sided weakness: Code(s): R53.1 - Weakness Status: Acute Assessment and Plan: New deficits of left sided weakness (LUE and LLE) with onset of symptoms at 6:30 p.m. on 06/03. Last known well at 6 p.m. on 06/03. Initial NIHSS in ED: 5. He was not a candidate for thrombolytics as he is already on Xarelto He was not a candidate for thrombectomy, no LVO on CTA Head CT and CTA Head/Neck did not show any acute findings. Neurology consulted He was started on ASA and Plavix. Will hold Xarelto for now. Echo showing EF 60-65%, Grade II diastolic dysfunction and mild valvular disease. Intact septum Speech therapy showing no issues. Brain MRI w/wo ordered and results are pending. Continue neuro checks Q4 Continue PT/OT (2) Headache: Qualifiers: Headache type: unspecified Headache chronicity pattern: acute headache Code(s): R51.9 - Headache, unspecified Status: Acute Assessment and Plan: Developed shortly after developing left sided weakness on 06/03. Initial treatment with aspirin, Benadryl, Ativan, and metoclopramide. BP initially hypertensive at 187/107, will allow moderate amount of permissive hypertension as there is high concern for stroke and patient is not candidate for TNK or thrombectomy. Consider due to hypertensive urgency, stroke, or complex migraine. Better (3) Elevated blood pressure reading: Code(s): R03.0 - Elevated blood-pressure reading, without diagnosis of hypertension Status: Acute Assessment and Plan: Initial BP 187/107. Allowing for permissive hypertension given patient has concern for stroke. May be contributing to headache. RN found that patient has not filled his anti-HTN meds for the past 2 years. Will stress compliance. Plan DVT Prophylaxis: SCDs Code Status: full code Subjective Date/time seen: 06/04/25 19:07 Interval history: 60yo male with hx of DVT and HTN here for left sided weakness. He had an injury to his left hand and is curently undergoing physical therapy. 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 No alcohol, drug use, narcotics, benozo use or other OTC meds prior to feeling weak. No facial weakness, numbness. No vision changes. No odynophagia or dysphagia. No neck problems. No recent trauma. Exam Narrative: AF 98.5 143/94 59 18 100% ra Gen - NARD Chest - CTA bilaterally, nml RR CV - RRR S1/S2. Tele showing no significant dysrhythmias Abd - Soft, NT/ND, Positive BS Ext - No pedal edema Neuro - Alert and oriented. Nonfocal exam except weak left munitions handler Psych - Nml mood and affect Skin - Warm and dry Objective Data Vital Signs Vital Signs: Vital Signs - 24 hr 06/03/25 19:54 06/03/25 20:14 06/03/25 20:15 Temperature 98.2 F Pulse Rate 67 67 Respiratory Rate 16 18 Blood Pressure 187/107 H Pulse Oximetry 98 99 100 Oxygen Delivery Room Air 06/03/25 20:21 06/03/25 20:25 06/03/25 20:30 Temperature Pulse Rate 62 61 72 Respiratory Rate 14 14 20 Blood Pressure 186/107 H Pulse Oximetry 95 96 Oxygen Delivery 06/03/25 20:45 06/03/25 21:07 06/03/25 21:18 Temperature Pulse Rate 68 65 80 Respiratory Rate 15 12 15 Blood Pressure Pulse Oximetry 96 Oxygen Delivery 06/03/25 21:30 06/03/25 21:33 06/03/25 21:45 Temperature Pulse Rate 71 68 67 Respiratory Rate 11 L 11 L 12 Blood Pressure 183/115 H Pulse Oximetry 97 97 98 Oxygen Delivery 06/03/25 21:47 06/03/25 21:48 06/03/25 22:00 Temperature Pulse Rate 66 65 73 Respiratory Rate 11 L 12 12 Blood Pressure 166/110 H Pulse Oximetry 98 97 98 Oxygen Delivery 06/03/25 22:02 06/03/25 22:15 06/03/25 22:17 Temperature Pulse Rate 63 65 63 Respiratory Rate 12 11 L 12 Blood Pressure 183/117 H 166/109 H Pulse Oximetry 99 100 99 Oxygen Delivery 06/03/25 22:36 06/03/25 22:47 06/03/25 22:48 Temperature Pulse Rate 64 64 64 Respiratory Rate 12 11 L 11 L Blood Pressure 159/98 H Pulse Oximetry 100 100 100 Oxygen Delivery 06/03/25 23:16 06/03/25 23:40 06/04/25 00:00 Temperature 97.9 F Pulse Rate 64 60 Respiratory Rate 18 16 Blood Pressure 146/98 H 144/83 H Pulse Oximetry 97 98 Oxygen Delivery Room Air 06/04/25 00:00 06/04/25 02:00 06/04/25 04:00 Temperature Pulse Rate 61 61 Respiratory Rate Blood Pressure Pulse Oximetry Oxygen Delivery Room Air 06/04/25 04:00 06/04/25 04:00 06/04/25 06:00 Temperature 98.2 F Pulse Rate 58 L 56 L 60 Respiratory Rate 14 Blood Pressure 169/93 H Pulse Oximetry 99 Oxygen Delivery 06/04/25 08:00 06/04/25 08:00 06/04/25 10:00 Temperature 97.9 F Pulse Rate 55 L 58 L 62 Respiratory Rate 18 Blood Pressure 165/93 H Pulse Oximetry 98 Oxygen Delivery 06/04/25 12:00 06/04/25 12:00 06/04/25 12:00 Temperature 98.2 F Pulse Rate 62 70 Respiratory Rate 18 Blood Pressure 136/88 Pulse Oximetry 97 Oxygen Delivery Room Air 06/04/25 13:03 06/04/25 14:00 06/04/25 14:40 Temperature Pulse Rate 60 Respiratory Rate Blood Pressure Pulse Oximetry Oxygen Delivery Room Air Room Air 06/04/25 16:00 06/04/25 16:00 06/04/25 16:00 Temperature 98.5 F Pulse Rate 60 60 Respiratory Rate 18 Blood Pressure 143/94 H Pulse Oximetry 100 Oxygen Delivery Room Air 06/04/25 17:53 Temperature Pulse Rate 59 L Respiratory Rate Blood Pressure Pulse Oximetry Oxygen Delivery Intake/Output Intake/Output: Intake & Output 06/01/25 06/02/25 06/03/25 06/04/25 23:59 23:59 23:59 23:59 Intake Total 1000 2560 Output Total 2350 Balance 1000 210 Meds/Results Medications: Active Medications Generic Name Dose Route Start Last Admin Trade Name Freq PRN Reason Stop Dose Admin Acetaminophen 1,000 mg 06/03/25 21:43 Acetaminophen 500 Mg Tablet PO Q6H PRN Mild Pain (1-3) or Fever Aspirin 81 mg 06/04/25 09:00 06/04/25 09:02 Aspirin 81 Mg Enteric Tablet PO 81 mg QAM JOSIAS Administration Atorvastatin Calcium 40 mg 06/04/25 09:00 06/04/25 09:02 Atorvastatin 40 Mg Tablet PO 40 mg DAILY JOSIAS Administration Clopidogrel Bisulfate 75 mg 06/04/25 09:00 06/04/25 09:01 Clopidogrel Bisulfate 75 Mg Tablet PO 75 mg QAM JOSIAS Administration Ondansetron HCl 4 mg 06/03/25 21:43 Ondansetron Hcl Odt 4 Mg Tablet PO Q6H PRN Nausea And Vomiting Perflutren Lipid Microsphere 0 ml 06/03/25 21:38 Perflutren Lipid Microspheres 1.5 Ml Vial Diluted To 10 Ml Total Volume IV PUSH 06/06/25 21:38 ONCE PRN adequate visualization Protocol Radiology Results: ITS Impressions Head CT 06/03/25 20:08 IMPRESSION: No acute intracranial process. ADDENDUM: 06/03/252020 Results reported telephonically to Dr. Jacobs by Dr. Abad at 8:18 PM on 06/03/2025. Head/Neck CTA 06/03/25 20:22 IMPRESSION: No large vessel intracranial occlusion, high-grade intracranial stenosis, or aneurysm. No carotid or vertebral artery occlusion, dissection, or significant stenosis. 2.8 cm right thyroid nodule, recommend outpatient thyroid ultrasound for further characterization. Chest X-Ray 06/03/25 20:53 IMPRESSION: Segmental left lower lung atelectasis/consolidation. Labs Labs: Laboratory Results - last 24 hr 06/03/25 06/03/25 06/03/25 19:57 20:00 20:05 WBC 5.5 RBC 5.16 Hgb 13.6 L Hct 43.7 MCV 84.7 MCH 26.4 MCHC 31.1 L RDW 14.6 H Plt Count 196 MPV 10.4 Immature Gran % (Auto) 0.2 Neut % (Auto) 39.7 L Lymph % (Auto) 50.5 H [place] % (Auto) 7.7 Eos % (Auto) 1.5 Baso % (Auto) 0.4 Lymph # (Auto) 2.76 [place] # (Auto) 0.4 Eos # (Auto) 0.1 Baso # (Auto) 0.0 Abs Immat Gran (auto) 0.01 Absolute Neuts (auto) 2.2 Absolute Nucleated RBC 0.000 Nucleated RBC % 0.0 PT 12.7 INR 0.9 APTT 23.7 Sodium 143 Potassium 3.6 Chloride 106 Carbon Dioxide 27 Anion Gap 10 BUN 15 Creatinine 1.40 H 1.40 Estim Creat Clear Calc Not Reportable Not Reportable Estimated GFR 52 L 52 L Glucose 103 POC Capillary Glucose 111 H Hemoglobin A1c Calcium 9.5 Total Bilirubin 0.7 AST 47 ALT 53 H Alkaline Phosphatase 65 Troponin I < 0.012 Total Protein 8.6 H Albumin 4.7 Triglycerides Cholesterol LDL Cholesterol Direct HDL Direct Urine Color Urine Appearance Urine pH Ur Specific [address] Urine Protein Urine Glucose (UA) Urine Ketones Ur Blood (Man) Urine Nitrate Urine Bilirubin Urine Urobilinogen Leukocyte Esterase Rfl Urine RBC Urine WBC Ur Squamous Epith Cells Urine Bacteria Urine Casts 06/03/25 06/04/25 20:43 03:45 WBC 4.8 RBC 4.69 Hgb 12.3 L Hct 39.5 L MCV 84.2 MCH 26.2 MCHC 31.1 L RDW 14.5 Plt Count 177 MPV 11.2 H Immature Gran % (Auto) 0.4 Neut % (Auto) 53.8 Lymph % (Auto) 36.4 [place] % (Auto) 7.1 Eos % (Auto) 2.1 Baso % (Auto) 0.2 Lymph # (Auto) 1.74 [place] # (Auto) 0.3 Eos # (Auto) 0.1 Baso # (Auto) 0.0 Abs Immat Gran (auto) 0.02 Absolute Neuts (auto) 2.6 Absolute Nucleated RBC 0.000 Nucleated RBC % 0.0 PT INR APTT Sodium 140 Potassium 3.5 Chloride 106 Carbon Dioxide 26 Anion Gap 8 BUN 14 Creatinine 1.18 Estim Creat Clear Calc 79 Estimated GFR > 60 Glucose 107 POC Capillary Glucose Hemoglobin A1c 6.2 H Calcium 9.2 Total Bilirubin 0.6 AST 40 ALT 44 Alkaline Phosphatase 59 Troponin I Total Protein 7.1 Albumin 3.9 Triglycerides 134 Cholesterol 199 LDL Cholesterol Direct 112 HDL Direct 42 Urine Color Yellow Urine Appearance Clear Urine pH 7.[address] 1.029 Urine Protein 1+ H Urine Glucose (UA) Negative Urine Ketones Negative Ur Blood (Man) Trace Urine Nitrate Negative Urine Bilirubin Negative Urine Urobilinogen 1.0 Leukocyte Esterase Rfl Negative Urine RBC 3-5 H Urine WBC 0-5 Ur Squamous Epith Cells None seen Urine Bacteria None seen Urine Casts 0-2
[2025-06-05] VITALS (12 sets, daily range): BP systolic 145–157; BP diastolic 80–96; PULSE 53–74; RESP 12–20; TEMP 36.5–36.9; O2SAT 98–100
[2025-06-05] MEDS: ATORVASTATIN 40 MG TABLET PO (10:03)
[2025-06-05] MEDS: ASPIRIN 81 MG ENTERIC TABLET PO (10:03)
[2025-06-05] MEDS: CLOPIDOGREL BISULFATE 75 MG TABLET PO (10:03)
--- NOTE | 2025-06-05 16:02 | P.DS_ITS ---
DS: Admitting Diagnosis Discharge Date 06/05/25 Admitting Diagnosis Left sided weakness DS: Discharge Diagnosis Discharge Diagnosis (1) Right-sided cerebrovascular accident (CVA): Code(s): I63.9 - Cerebral infarction, unspecified Status: Acute (2) Left-sided weakness: Code(s): R53.1 - Weakness Status: Acute (3) Headache: Qualifiers: Headache type: unspecified Headache chronicity pattern: acute headache Code(s): R51.9 - Headache, unspecified Status: Acute (4) Elevated blood pressure reading: Code(s): R03.0 - Elevated blood-pressure reading, without diagnosis of hypertension Status: Acute (5) Hypertension: Code(s): I10 - Essential (primary) hypertension Status: Acute (6) prison current use of anticoagulant: Code(s): Z79.01 - manager long term care (current) use of anticoagulants Status: Acute (7) Thyroid nodule: Code(s): E04.1 - Nontoxic single thyroid nodule Status: Acute DS: Summary Hospital Course Reason for hospitalization: 60yo male with hx of DVT on Xarelto and HTN here for left sided weakness. Please see H&P for details. Hospital Course: Patient presents with left sided weakness (LUE and LLE) with onset of symptoms at 6:30 p.m. on 06/03. Last known well at 6 p.m. on 06/03. Initial NIHSS in ED: 5. He was not a candidate for thrombolytics as he is already on Xarelto. He was not a candidate for thrombectomy, no LVO on CTA. Head CT and CTA Head/Neck did not show any acute findings. Neurology consulted. He was started on Lipitor, ASA and Plavix. We held Xarelto. Echo showing EF 60-65%, Grade II diastolic dysfunction and mild valvular disease. Intact septum. CXR showing segmental LLL airspace disease felt to be atelectasis. Speech therapy showing no issues. He worked with PT and OT. Brain MRI w/wo showing right parietal/posterior right temporal infarct, with additional small focal areas of additional infarct in the superior right frontal lobe. Also with background moderate to severe chronic microvascular ischemic changes. He developed shortly after developing left sided weakness on 06/03. Initial treatment with aspirin, Benadryl, Ativan, and metoclopramide. BP initially hypertensive at 187/107. We allowed for permissive hypertension as there is high concern for stroke and patient is not candidate for TNK or thrombectomy. Headache improved. Patient has been taking anti-HTN meds regularly (he has been doing mail-order and his pharmacy was unaware). He did take all his medications (including the Xarelto) on the morning of discharge without notifying staff. Blood pressure monitored and he tolerated the medications well. Patient has had only one DVT but since it was unprovoked, he was placed on life-long Xarelto therapy. Discussed with neurology with plans to just add ASA to his Xarelto and contnue his current anti-HTN meds and continue Lipitor. Patient will follow-up with neurology in the outpatient clinic. The CTA Head/Neck also showed a 2.8cm right thyroid nodule with ultrasound recommended. Patient informed about the above findings and the need to arrange for further evaluation through his doctor. Patient overall did well was able to be discharged home on 06/05/25. Status at Discharge Cognitive/behavioral status at discharge: stable Time Spent with Patient Time attestation: Total time spent providing and/or coordinating discharge services: 35 minutes Time spent: Greater than 30 minutes Exam Narrative: AF 97.9 145/96 59 18 100% ra Gen - NARD Chest - CTA bilaterally, nml RR CV - RRR S1/S2. Tele showing no significant dysrhythmias Abd - Soft, NT/ND, Positive BS Ext - No pedal edema Neuro - Alert and oriented. 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 Record and bring into your doctor for review. Call your doctor if your blood pressure is greater than 180/110. Contact your doctor or call 911 and come to the Emergency Room if you have worsening weakness or other worrisome symptoms. Avoid NSAIDs (ibuprofen, naproxen, Aleve). Tylenol is safe to take. Follow-up with Neurologist in 2-4 weeks. Please call for an appointment. Follow-up with your primary care provider in 1-2 weeks. Please call for appointment. Please talk with your doctor about further testing on the right thyroid nodule as we discussed Thank you for using [facility] for your health care needs. Patient Instructions: Antibiotic Form, Ischemic Stroke (DC), Blood Thinners (DC) Patient Language: Norwegian Stand Alone Forms: General Discharge Information Follow-up/Referrals: Sergio,Álvaro Bergeron MD [Primary Care Provider] - Call for Appointment Jack Campo MD [Physician] - Areli Ya MD [Physician] - Call for Appointment Discharge Medications: New aspirin 81 mg Tablet,Delayed Release (Dr/Ec) 81 mg PO QAM Qty: 30 2RF atorvastatin 40 mg Tablet 40 mg PO DAILY Qty: 30 2RF Continued amlodipine 10 mg .Route DAILY rivaroxaban [Xarelto] 20 mg .Route DAILY carvedilol 25 mg tablet 25 mg PO BID Rx Instructions: must administer with a meal/food losartan-hydrochlorothiazide 50-12.5 mg tablet 1 tablet PO DAILY Other Ambulatory Orders: OT Outpatient Eval and Treat (ONCE) Timeframe: 20250606 Location: Determined by Patient Ordered By: Flex Carrillo PT Outpatient Eval and Treat (ONCE) Timeframe: [id number] Location: Determined by Patient Ordered By: Flex Carrillo CA holter monitor 3-7 day (Routine) Timeframe: 1 Day Location: Determined by Patient Ordered By: Flex Carrillo Date of admission: 06/03/25 21:22 Primary Care Provider: SergioÁlvaro Admitting Provider: Neli Ji Attending physician on admission: Neli Ji Condition: Stable Hospitalist MIPS Heart Failure (Exclusion) Patient has history of Heart Transplant or Left Ventricular Assistive Device?: No IF YES, STOP HERE Heart Failure (Qualifier) Patient has current or prior documentation of LVEF less than or equal to 40%, or mod/servere depressed LVSF?: No IF NO, STOP HERE
== END 2025-06-05 18:20 | disposition home or self-care (01) | DRG 65 ==
LOC: ANHED 20:15 → ANHIMU 22:40
PROVIDERS: Student in an Organized Health Care Education/Training Program; Admitting Provider Internal Medicine; Emergency Provider Emergency Medicine; PCP Internal Medicine Geriatric Medicine; Visit Provider Internal Medicine
DX: I63.9 Cerebral infarction, unspecified (principal); G81.94 Hemiplegia, unspecified affecting left nondominant side; R51.9 Headache, unspecified; R29.705 NIHSS score 5; I10 Essential (primary) hypertension; E04.1 Nontoxic single thyroid nodule; Z79.01 Long term (current) use of anticoagulants; Z86.718 Personal history of other venous thrombosis and embolism; E66.9 Obesity, unspecified; Z68.33 Body mass index [BMI] 33.0-33.9, adult
CPT/HCPCS: 36415; 70450; 70496; 70498; 70553; 71045; 80053; 80061; 81001; 82948; 83036; 84484; 85025; 85610; 85730; 92507; 92523; 93005; 93306; 96374; 96375; 97110; 97112; 97161; 97166; 97535; 99285; A9270; A9577; J1200; J2060; J2765; J7120; Q9967

== ENCOUNTER 2025-08-01 09:55 | Outpatient (CLI) | payer OTHER, SELFPAY ==
--- NOTE | ~2025-08-01 | US_ITS ---
US thyroid INDICATION: Thyroid nodule TECHNIQUE: Real-time sonographic images of the thyroid gland were obtained. COMPARISON: No prior studies for comparison. FINDINGS: The right thyroid lobe measures 5.1 x 3.5 x 2.6 cm. The left thyroid lobe measures 4.6 x 2.4 x 1.7 cm. There is normal echotexture and echogenicity throughout the thyroid gland. No discrete mass in the left thyroid lobe. In the right lobe there is a complex predominantly hypoechoic solid mass measuring 3.3 x 3.1 x 2.6 cm, wider than tall, smoothly marginated without echogenic foci. There is a second right thyroid mass which is predominantly solid, hyperechoic wider than tall smoothly marginated without echogenic foci measuring 1.6 x 1.8 x 1.2 cm, TR 3. Normal vascular flow is present. IMPRESSION: 1. Suspicious dominant right thyroid mass measuring 3.3 cm maximum dimension. Ultrasound-guided fine-needle aspiration biopsy recommended. A second solid right thyroid mass measures 1.6 cm, TR 3. Follow-up ultrasound in 12 months recommended to assess stability of this mass. Reviewed, dictated and finalized at location O. IMPRESSION: 1. Suspicious dominant right thyroid mass measuring 3.3 cm maximum dimension. Ultrasound-guided fine-needle aspiration biopsy recommended. A second solid rig ht thyroid mass measures 1.6 cm, TR 3. Follow-up ultrasound in 12 months recommended to assess stability of this ma ss.
== END 2025-08-01 09:56 | disposition home or self-care (01) ==
LOC: MICIMG 09:56
PROVIDERS: PCP Internal Medicine Geriatric Medicine; Visit Provider Otolaryngology
DX: E04.1 Nontoxic single thyroid nodule (principal)
CPT/HCPCS: 76536

== ENCOUNTER 2025-09-25 12:51 | Outpatient (CLI) | payer OTHER, SELFPAY ==
--- NOTE | ~2025-09-25 | US_ITS ---
EXAMINATION: US FNA w image guidance DATE: 09/25/2025 13:33 INDICATION: Right thyroid mass TECHNIQUE: A time-out was performed to verify the patient's name, date of , and procedure to be performed. The procedure and its benefits and risks were discussed with the patient. Risks specifically discussed included bleeding and infection. The patient understood the risks and agreed to proceed. The neck was prepped and draped in the usual sterile manner. 4 mL 1% lidocaine was used for local anesthesia. 5 passes were made with a 25G needle into the lesion. Appropriate needle location was documented with continuous sonographic guidance. A sterile bandage was applied. There were no immediate complications. FINDINGS: Grayscale ultrasound images demonstrate biopsy needles advanced into a 3.3 cm TI RADS 4 mass in the right thyroid lobe. IMPRESSION: 1. Successful ultrasound-guided fine needle aspiration of a 3.3 cm TI RADS 4 right thyroid mass. Reviewed, dictated and finalized at location A. IMPRESSION: 1. Successful ultrasound-guided fine needle aspiration of a 3.3 cm TI RADS 4 r ight thyroid mass.
--- NOTE | 2025-09-25 13:30 | CY_PTH ---
PATIENT: Carlos Butterfield V LOC: [facility] U#:[id number] AGE/SX: 60/M ROOM: RE09/25/[address]: Harish Paul MD : 1965 BED: DIS: 09/25/2025 SPEC #: [id number] RECD: 09/25/25 13:36 STATUS: LEEANN REQ #: [id number] SHAJI: 09/25/25 13:[address]: Harish Paul DEPT: [facility] Cytology RECD BY: Naa Amador ENTERED: 09/25/25 13:37 SP TYPE: Cytology OT DR: Álvaro HillMD Tissues: A - FNA Thyroid Procedures: Hematoxylin and Eosin Stain Cell Block Fine Needle Aspiration Evaluation Fine Needle Aspiration Pathologist
--- OUTSIDE RECORDS SUMMARY | 2025-09-25 14:35 | XMS_ITS | Clinical Summary ---
Author Organization [facility] Address [address] [place] [address] Care Team Providers Care Service Attendant Name Role Phone Harish Teran MD Primary Care Provider [phone] Source Comments [facility],non-owned Affiliates and Associated Physician Practices is amultiple site organization consisting of ambulatory clinics and hospital sitesin [place], [place], [place] and [place]. This disclosure is being madepursuant to the Care Everywhere program and may not contain all information available regarding this patient. Last updated 18.[facility] Allergies No known active allergies Medications * [...] 4 Grams (4000 mg) / 24 hours. 12/08/20 24 Active active leptospermum honey (Medihoney) GEL gel Apply to affected area once daily 15 mL 1 11/17/20 Active Active Problems Problem Noted Date Diagnosed Date Stroke (cerebrum) 06/07/2025 Left hand pain 11/02/2024 Flexor tenosynovitis of finger 11/02/2024 Finger injury, left, initial encounter Stage 3 chronic kidney disease 11/02/2024 History of DVT (deep vein thrombosis) 11/02/2024 Benign essential HTN 11/02/2024 Arthritis of left wrist 09/26/2019 Acute appendicitis 08/17/2016 Foreign body in cornea 11/21/2009 Encounters Date Type Department Care Team Description 07/18/2025 8:30 AM CDT - 07/18/2025 11:59 PM CDT Hospital Encounter [facility] OT [address] [place] [address] Perfecto Thompson MD Muldoon, Grace, OT Orthopedics Discharge Disposition: Home or Self Care 07/11/2025 8:00 AM CDT - 07/11/2025 11:59 PM CDT Hospital Encounter [facility] OT [address] [place] [address] Perfecto Thompson MD Muldoon, Grace, OT Orthopedics Discharge Disposition: Home or Self Care 07/04/2025 8:30 AM CDT - 07/04/2025 11:59 PM CDT Hospital Encounter [facility] OT [address] [place] [address] Perfecto Thompson MD Reale, Jennifer, OTR/L Orthopedics Discharge Disposition: Home or Self Care 06/27/2025 8:30 AM CDT - 06/27/2025 11:59 PM CDT Hospital Encounter [facility] OT [address] [place] [address] Perfecto Thompson MD Reale, Jennifer, OTR/L Orthopedics Discharge Disposition: Home or Self Care from [...] and heating? Not hard at all 11/03/2024 [facility] - Occupational Stress [...] any time in the past [facility], were you homeless or living in a halfway (including now)? 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 Gender Identity Not on file Sexual Orientation Not on file Last Filed Vital Signs Vital Sign Reading Time Taken Comments Blood Pressure 140/108 11/05/2024 9:24 AM AUTOMOTIVE AIRCONDITIONING MECHANIC Pulse 74 11/05/2024 9:24 AM AUTOMOTIVE AIRCONDITIONING MECHANIC Temperature 36.6 C (97.9 F) 11/05/2024 9:24 AM AUTOMOTIVE AIRCONDITIONING MECHANIC Respiratory Rate 20 11/05/2024 9:24 AM AUTOMOTIVE AIRCONDITIONING MECHANIC Oxygen Saturation 97% 11/04/2024 8:13 PM AUTOMOTIVE AIRCONDITIONING MECHANIC Inhaled Oxygen Concentration 40% 11/02/2024 5 :25 PM AUTOMOTIVE AIRCONDITIONING MECHANIC Weight 114.3 kg (252 lb) 11/02/2024 9:06 PM AUTOMOTIVE AIRCONDITIONING MECHANIC Height 188 cm (6' 2.02) 11/02/2024 9:06 PM AUTOMOTIVE AIRCONDITIONING MECHANIC Body Mass Index 32.34 11/02/2024 9:06 PM AUTOMOTIVE AIRCONDITIONING MECHANIC Plan of Treatment Health Maintenance Due Date Last Done Comments COLOGUARD (AGES 45-75) - COLON CA SCREENING 1965 CT COLONOGRAPHY - COLON CA SCREENING 1965 FIT - COLON CA SCREENING 1965 FLEX SIG - COLON CA SCREENING 1965 LIPID TESTING 1965 HIV SCREENING 1979 HEPATITIS C SCREENING 05/31/1982 DTAP/TDAP/TD VACCINES (1 - Tdap) 1983 PNEUMOCOCCAL VACCINE 50+ (1 of 1 - PCV) 2014 ZOSTER VACCINE (1 of 2) 2014 DEPRESSION SCREENING 11/29/2024 COVID-19 VACCINE ( - season) 2025 11/11/2022, 04/09/2021, 03/07/2021, Additional history exists INFLUENZA VACCINE (#1) 2025 09/11/2024, 2015 SCREENING FOR DIABETES 11/01/2027 , 08/18/2016, 08/17/2016 COLON MONITORING 08/06/2032 08/06/2022 COLONOSCOPY - COLON [...] COMPREHENSIVE METABOLIC PANEL STAT 11/01/2024 6:27 PM AUTOMOTIVE AIRCONDITIONING MECHANIC from Last 3 Months or Most Recently Relevant to Health Maintenance Results * (ABNORMAL) COMPREHENSIVE METABOLIC PANEL (11/01/2024 6:27 PM AUTOMOTIVE AIRCONDITIONING MECHANIC) BUN 18 7 - 26 mg/dL 11/01/2024 7:02 PM [facility] Creatinine 1.42(H) 0.71 - 1.16 mg/dL 11/01/2024 7:02 PM [facility] Sodium 139 136 - 145 mmol/L 11/01/2024 7:02 PM [facility] Potassium 3.5 3.5 - 4.5 mmol/L 11/01/2024 7:02 PM [facility] Chloride 107 98 - 107 mmol/L 11/01/2024 7:02 PM [facility] CO2 24 22 - 29 mmol/L 11/01/2024 7:02 PM [facility] Glucose 106(H) 70 - 99 mg/dL 11/01/2024 7:02 PM [facility] Calcium 9.4 8.4 - 10.2 mg/dL 11/01/2024 7:02 PM [facility] Protein Total 7.7 6.0 - 8.3 g/dL 11/01/2024 7:02 PM [facility] Albumin 3.8 3.4 - 5.0 g/dL 11/01/2024 7:02 PM [facility] Bilirubin Total 0.6 0.2 - 1.2 mg/dL 11/01/2024 7:02 PM [facility] Alkaline Phosphatase 62 40 - 150 U/L 11/01/2024 7:02 PM [facility] ALT 34 5 - 55 U/L 11/01/2024 7:02 PM [facility] AST 26 5 - 34 U/L 11/01/2024 7:02 PM [facility] Anion Gap 8 6 - 16 11/01/2024 7:02 PM [facility] BUN/Creatinine Ratio 13 7 - 23 11/01/2024 7:02 PM [facility] Osmolality Calculated 290 275 - 295 mOsm/kg 11/01/2024 7:02 PM [facility] Albumin/Globulin Ratio 1.0(L) 1.1 - 2.3 11/01/2024 7:02 PM [facility] eGFR by CKD-EPI 57(L) >=90 mL/min/1.7 3 m2 11/01/2024 7:02 PM [facility] Blood BLOOD SPECIMEN / Unknown Venipuncture / Unknown 11/01/2024 6:27 PM AUTOMOTIVE AIRCONDITIONING MECHANIC 11/01/2024 6:35 PM [facility] Marga Paiz PLANT MAINTENANCE SUPERVISOR-SPACE STUDIES FACULTY MEMBER LAB - CHEMISTRY ORDER AVA Final Result [facility] [address] [place] [address], [facility] [phone] from Last 3 Months or Most Recently [...] 12:45 PM 03/15/2015 7:09 PM Care Teams Service Attendant Relationship Specialty Start Date End Date Harish Teran MD [facility] [facility] [address] Martin PHILLIPS [address] [place] [phone] PCP - General Internal Medicine 03/15/15
--- OUTSIDE RECORDS SUMMARY | 2025-09-25 14:35 | XMS_ITS | Encounter Summary ---
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 Gender Identity Not on file Sexual Orientation Not on file documented as of this encounter Functional Status documented as of this encounter Plan of Treatment Scheduled Procedures Name Priority Associated Diagnoses Date/Ti me COLONOSCOPY Encounter for screening for malignant neoplasm of colon documented as of this encounter Visit Diagnoses Not on filedocumented in this encounter Care Teams Psychologist Clinical Relationship Specialty Start Date End Date Claudia Rojas NP [facility] [address] Martin PHILLPIS [address] [place] [id number] PCP - General Internal Medicine 01/24/21 documented as of this encounter
--- OUTSIDE RECORDS SUMMARY | 2025-09-25 14:36 | XMS_ITS | Clinical Summary ---
Author Organization [facility] Address [address] [place] [address] Care Team Providers Care Aerotriangulation Specialist Name Role Phone Claudia Rojas NP Primary Care Provider [phone] Allergies No known active allergies Medications multivitamin-min [...] surveillance Assessment & Plan (11/02/2023 3:50 PM LEAN COACH): Mild, asymp & benign historically at +1 [...] monitoring Assessment & Plan (11/16/2022 2:39 PM LEAN COACH): Intermittent ED sx w/o psychogenic etiology Improve [...] today Assessment & Plan (11/02/2023 4:00 PM LEAN COACH): Hyperlipidemia well controlled on atorvastatin Adherent to [...] today Assessment & Plan (11/16/2022 2:27 PM LEAN COACH): Hyperlipidemia are unchanged, newly increased as of [...] months Assessment & Plan (11/02/2023 3:56 PM LEAN COACH): Remains stable/ near baseline (1.2-1.4) Update routine [...] labs Assessment & Plan (11/16/2022 2:26 PM LEAN COACH): CKD is near baseline- update today Labs/Diagnostics:CMP [...] anticoagulation. Assessment & Plan (11/02/2023 3:55 PM LEAN COACH): Stable on Xarelto. Evaluated by hematology who agreed with long-term anticoagulation. Cont with once daily you for maintenance anticoagulation. Assessment & Plan (07/07/2023 3:58 PM CDT): Stable on Xarelto. Evaluated by hematology who agreed with long-term anticoagulation. Cont with once daily you for maintenance anticoagulation. Assessment & Plan (11/16/2022 2:28 PM LEAN COACH): Stable on Xarelto. Evaluated by hematology who [...] since oct(prior 2.3 in 2019) FHx of estate manager Asymp Agreeable to urologic consult for evaluation of both closer PSA monitoring, evaluate impotence concerns Interim psa surveillance until w/ specialist Assessment & Plan (05/15/2024 12:04 PM CDT): Modestly stable 11/20 2.67 from 2.17 in jun(prior 2.3 in 2019) FHx of estate manager Asymp Prior discussed urologist eval- preferring lab surveillance Comfortable with this as well if levels remain <3 & asymptomatic Cnt lab surveillance Q4-6 months -update today Assessment & Plan (11/02/2023 3:59 PM LEAN COACH): Remains stable in jun 2.17 from prior 2.3 in 2019 FHx of estate manager Asymp Prior discussed urologist eval- preferring lab surveillance Comfortable with this as well if levels remain <3 & asymptomatic Cnt lab surveillance Q4-6 months -update today Assessment & Plan (07/07/2023 4:03 PM CDT): Overdue for update PSA surveillance- Brother's recent dx w/ estate manager; otherwise no known FHx estate manager Clinically asymptomatic Update PSA today pending further [...] 08/21/2019 Assessment & Plan (11/02/2023 4:06 PM LEAN COACH): Steady & marginal wt gain over last [...] OV Assessment & Plan (11/16/2022 2:35 PM LEAN COACH): Improving Cnt with lifestyle modifications working toward [...] months Assessment & Plan (11/02/2023 4:05 PM LEAN COACH): Hypertension is stable Continue current treatment regimen. [...] months Assessment & Plan (11/16/2022 2:27 PM LEAN COACH): Hypertension is improving with treatment Continue current [...] Separate BP medication from AM & PM [facility] today Assessment & Plan (05/08/2022 4:20 [...] months. Assessment & Plan (01/28/2021 3:41 PM LEAN COACH): Hypertension is improving with treatment and stable Continue current treatment regimen. Dietary sodium restriction. Regular aerobic exercise. Blood pressure will be reassessed at the next regular appointment. Assessment & Plan (01/24/2021 3:18 PM LEAN COACH): Hypertension is improving with treatment Continue current treatment regimen. Dietary sodium restriction. Regular aerobic exercise. Continue current medications. Medication changes per orders. Blood pressure will be reassessed in 4 weeks. Resolved Problems Problem Noted Date Diagnosed Date Resolved Date Arthralgia of right wrist 11/16/2022 Assessment & Plan (11/16/2022 2:33 PM LEAN COACH): Acute progression likely chronic OA in nature [...] anticoagulation. Assessment & Plan (01/28/2021 3:47 PM LEAN COACH): No known RF or prior hx of [...] 01/24/2021 Assessment & Plan (01/24/2021 3:02 PM LEAN COACH): Personal, surgical and family medical history all updated along with other pertinent health related history. Will follow-up with us for annual CPE in 1-2 months and in the interim with any additional concerns otherwise. Edema of left lower leg 01/24/2021 03/0 12/2020 Assessment & Plan (01/24/2021 4:21 PM LEAN COACH): Venous insufficiency VS DVT. Neurovascularly intact. Recommending [...] monitor Assessment & Plan (01/24/2021 4:20 PM LEAN COACH): Recommending x-ray imaging of right knee and if negative-physiatry for evaluation of right knee, gastrocnemius to ensure that there is no musculoskeletal concern to explain symptoms. Conservative pain management recommended the interim. Arthritis of left wrist 09/26/2019 04/2 04/2021 Assessment & Plan (01/24/2021 4:19 PM LEAN COACH): Stable with bracing and activity modifications. Cnt. With p.r.n. use of meloxicam, topical creams. Acute appendicitis 08/17/2016 Impacted cerumen 04/12/2014 01/24/2021 Foreign body in cornea 11/21/200901/24 Encounters Date Type Department Care Team Description 07/04/[address] [address] Claudia Rojas, MIGUELITO Med Refill [...] Comments Hypertension Osteoarthritis DVT (deep venous thrombosis) Appendicitis Hyperlipidemia Family History Medical History Relation Name Comments Hypertension Brother Prostate cancer Brother Stroke Brother Bladder Cancer Father Bladder Cance r - (Added by Conv) Blood Clot Father Diabetes Father Diabetes Mellit us - (Added by Conv) Hypertension Father Benign Ess[facility] Hypertension - (Added by Conv) Blood Clot Mother Diabetes Mother Diabetes Mellit us - (Added by Conv) Hypertension Mother Benign Ess[facility]ia l Hypertension - (Added by Conv) Stroke Mother Hypertension Sister Relation Name [...] on file Legal Sex Male 9:41 PM LEAN COACH Gender Identity Not on file Sexual Orientation Not on file 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 The test result will be approximately 20% lower when compared to the equimolar-standardized total PSA ([place]). Comparison of serial PSA results should be [...] - 09/03/2024 11:45 AM CDT 457 AND 0601 HAS BEEN DELETED PER DOCTORS ORDERS FASTING:NO FASTING: NO Claudia Rojas PUBLIC INFORMATION SPECIALIST LAB BLOOD ORDERABLES Final R esult [facility] [address] [address] * COLONOSCOPY (08/06/2022 2:33 PM CDT) Anatomical Region Laterality Modality Other Narrative Procedure Note Benito Rolle MD - 08/06/2022 2:33 PM CDT [facility] Patient Name: Lorena Butterfield Procedure Date: 08/06/2022 2:33 PM Date of : 1965 Admit Type: Outpatient Age: 57 Gender: Male Attending MD: Benito Rolle M.D. Room: [facility] ENDOSCOPY ROOM 4 Note Status: Finalized Procedure: Colonoscopy Indications: Screening for colorectal malignant neoplasm Referring MD: Kavita ShelleyNSalima Providers: Benito Rolle M.D. Medicines: Monitored Anesthesia [...] The scope was passed under direct vision.The [id number] endoscope was introduced through the anus and [...] On: 08/06/2022 2:33 PM Recognized by the Citizen Of The [place] Society for Gastrointestinal Endoscopy for promoting quality [...] GENERAL O RDERABLES Edited Result - Final [facility] [place] [address] from Last 3 Months or Most Recently Relevant to Health Maintenance Insurance [employer] [facility] [employer] [place] [employer] [facility] Care Teams Aerotriangulation Specialist Relationship Specialty Start Date End Date Claudia Rojas NP [address] [place] [address] DR Martin PHILLIPS [address] [place] [id number] PCP - General Internal Medicine 01/24/21
== END 2025-09-25 12:52 | disposition home or self-care (01) ==
PROVIDERS: PCP Internal Medicine Geriatric Medicine; Visit Provider Otolaryngology
DX: E04.1 Nontoxic single thyroid nodule (principal)
CPT/HCPCS: 10005; 88172; 88173; 88305